=== PATIENT | female | born 1930 | race Caucasian/White ===

== ENCOUNTER → 2016-10-04 | Outpatient (REF) | payer MEDICARE, OTHER, MEDICAID ==
[~2016-10-04] MED LIST: ALLP100T PO; AML2.5T PO; CYCL-265 PO; DGX.125T PO; FERR-74 PO; FURO-125 PO; LEVO75TA10 PO; LISI-596 PO; METO-272 PO; OXB5TCR PO; POLY17PO2 PO; POTA10TA10 PO; SMV20T PO; VITA1CAP PO; WARF1TAB PO; WARF5TAB PO; WRF1T PO
== END ==
LOC: LAB 11:30
PROVIDERS: ATTEND Family Medicine
DX: Z51.81 Encounter for therapeutic drug level monitoring (principal); Z79.01 Long term (current) use of anticoagulants
CPT/HCPCS: 85610

== ENCOUNTER → 2016-11-01 | Outpatient (REF) | payer MEDICARE, OTHER, MEDICAID | LOC: LAB 13:52 | PROVIDERS: ATTEND Family Medicine | DX: Z51.81 Encounter for therapeutic drug level monitoring (principal); Z79.01 Long term (current) use of anticoagulants | CPT/HCPCS: 85610 ==

== ENCOUNTER → 2016-11-08 | Outpatient (REF) | payer MEDICARE, OTHER, MEDICAID | LOC: LAB 10:28 | PROVIDERS: ATTEND Family Medicine | DX: Z51.81 Encounter for therapeutic drug level monitoring (principal); Z79.01 Long term (current) use of anticoagulants | CPT/HCPCS: 85610 ==

== ENCOUNTER → 2016-11-22 | Outpatient (REF) | payer MEDICARE, OTHER, MEDICAID | LOC: LAB 09:06 | PROVIDERS: ATTEND Family Medicine | DX: Z51.81 Encounter for therapeutic drug level monitoring (principal); Z79.01 Long term (current) use of anticoagulants | CPT/HCPCS: 85610 ==

== ENCOUNTER → 2016-12-13 | Outpatient (REF) | payer MEDICARE, OTHER, MEDICAID | LOC: LAB 11:03 | PROVIDERS: ATTEND Family Medicine | DX: Z51.81 Encounter for therapeutic drug level monitoring (principal); Z79.01 Long term (current) use of anticoagulants | CPT/HCPCS: 85610 ==

== ENCOUNTER → 2017-01-03 | Outpatient (REF) | payer MEDICARE, OTHER, MEDICAID | LOC: LAB 09:03 | PROVIDERS: ATTEND Family Medicine | DX: Z51.81 Encounter for therapeutic drug level monitoring (principal); Z79.01 Long term (current) use of anticoagulants | CPT/HCPCS: 85610 ==

== ENCOUNTER → 2017-01-10 | Outpatient (REF) | payer MEDICARE, OTHER, MEDICAID | LOC: LAB 08:43 | PROVIDERS: ATTEND Family Medicine | DX: Z51.81 Encounter for therapeutic drug level monitoring (principal); Z79.01 Long term (current) use of anticoagulants | CPT/HCPCS: 85610 ==

== ENCOUNTER → 2017-01-24 | Outpatient (REF) | payer MEDICARE, OTHER, MEDICAID | LOC: LAB 08:31 | PROVIDERS: ATTEND Family Medicine | DX: Z51.81 Encounter for therapeutic drug level monitoring (principal); Z79.01 Long term (current) use of anticoagulants | CPT/HCPCS: 85610 ==

== ENCOUNTER 2017-02-06 09:43 | Emergency (ER) | payer MEDICARE, OTHER, MEDICAID ==
[~2017-02-06] VITALS: Ht 175.3 cm; Wt 93.1 kg
[~2017-02-06 09:43] MED LIST changes: -TRM50T PO
--- OUTSIDE RECORDS SUMMARY | 2017-02-06 09:47 | XMS REPORT | Continuity of Care Document ---
Author Author [facility] Address Unknown Phone Unavailable Care Team Providers Care Circus Train Supervisor Name Role Phone DEIDRE LOO MD PCP [phone] Insurance Providers Payer Name Policy Number Subscriber Name Relationship Medicare A And B [id number] Mehreen Tripathi 18 Self / Same As Patient Other1 [id number] Mehreen Tripathi 18 Self / Same As Patient [facility] [id number] Mehreen Tripathi 18 Self / Same As Patient Advance Directives Directive Response Recorded Date/Time Advanced Directives No 09/27/15 4:48pm Problems Active Problems Medical Problem Onset Date Status Acute pain 09/29/2012 Acute Fall at home ~06/14/2014 Acute Hematoma 10/06/2012 Acute Hyponatremia 10/06/2012 Acute Malaise and fatigue Unknown Acute Muscle weakness 10/06/2012 Acute Medications Current Home Medications Medication Dose Units Route Directions Days/Qty Instructions Start Date Oxybutynin Chloride 5 Mg 5 Mg ORAL Daily 09/29/12 Lisinopril 20 Mg 20 Mg ORAL Daily 09/29/12 Amlodipine Besylate (Norvasc) 2.5 Mg 2.5 Mg ORAL Daily 09/29/12 Levothyroxine Sodium 75 Mcg 75 Mcg ORAL Daily 09/29/12 Metoprolol Succinate 50 Mg 50 Mg ORAL Daily 09/29/12 Simvastatin (Zocor) 20 Mg 20 Mg ORAL Bedtime 09/29/12 Digoxin 0.125 Mg 0.125 Mg ORAL Daily 09/29/12 Potassium Chloride 10 Meq 10 Meq ORAL Daily 09/29/12 Allopurinol 100 Mg 100 Mg ORAL Daily 09/29/12 Furosemide 20 Mg 20 Mg ORAL Daily 10/13/12 Ferrous Sulfate 325 Mg 325 Mg ORAL Daily 10/13/12 Vitamin B Complex 1 Each 1 Each ORAL Daily 09/27/15 Warfarin Sodium 1 Mg 1 Mg ORAL Q48hrs 09/27/15 Warfarin Sodium 1 Mg 0.5 Mg ORAL Q48hrs 09/27/15 Past Home Medications Medication Directions Ordered Status Warfarin (Coumadin) 1 Mg Tablet, 1 Mg Oral Daily@1700 09/29/12 Discontinued Cyclobenzaprine Hcl 10 Mg Tablet, 1 Tab Oral Tid Prn 09/30/12 Discontinued Polyethylene Glycol 3350 17 Gm Powd.pack, 17 Gm Oral Every 48 Hours 10/13/12 Discontinued Warfarin Sodium 5 Mg Tablet, 5 Mg Oral Daily@1700 10/13/12 Discontinued Social History No social history. Hospital Discharge Instructions Current inpatient/outpatient. Discharge instructions are currently unavailable. Plan of Care Prescriptions Functional Status No functional status results. Allergies, Adverse Reactions, Alerts Allergen Type Severity Reaction Status Last Updated No Known Allergies Allergy Active 10/06/12 Immunizations Name Given Type Status Date Pneumonia Vaccine Received if Current 10/09/12 Historical Historical Date Influenza Vaccine Received if Current 10/09/12 Historical Historical Vital Signs No known vital signs results. Results Laboratory Results Test Name Result Units Flags Reference Collection Date/Time Result Date/ Time Comments 25-Hydroxy Vitamin D Total 27.8 ng/mL L 30.0-100.0 01/12/2016 10:55am 2:39pm Pending Laboratory Results Test Name Collection Date/Time Procedures Procedure Status Date Provider(s) CALCULUS ASSAY QUANT Completed 03/29/16 PROTHROMBIN TIME Completed 04/05/16 Encounters Encounter Location Arrival/Admit Date Discharge/Depart Date Attending Provider Registered Referred [facility] 04/05/16 10:37am DEIDRE LOO MD Registered Referred [facility] 03/29/16 8:43am DEIDRE LOO MD Discharged Recurring [facility] 01/12/16 11:49am 04/11/16 11:59pm DEIDRE LOO MD
[2017-02-06] MEDS ORDERED: TRM50T PO (10:46)
--- NOTE | 2017-02-06 11:09 | Diagnostic Imaging Report ---
INDICATION: Left knee pain. FINDINGS: Four views of the left knee show no fracture, dislocation, or pathologic effusion. There is minimal narrowing of the medial tibiofemoral joint space. IMPRESSION: Unremarkable left knee. No acute abnormality is seen. Dictated by: Dictated on workstation # [id number]
[2017-02-06 15:02] VITALS: BP 179/66
== END 2017-02-06 11:02 | disposition home or self-care (01) ==
LOC: ED 09:49
DX: S83.92XA Sprain of unspecified site of left knee, initial encounter (principal); W18.39XA Other fall on same level, initial encounter; Y93.89 Activity, other specified; Y92.002 Bathroom of unspecified non-institutional (private) residence as the place of occurrence of the external cause
CPT/HCPCS: 73564; 99282; 99283

== ENCOUNTER → 2017-02-06 | Outpatient (CLI) | payer MEDICARE, OTHER, MEDICAID ==
[~2017-02-06] MED LIST changes: +TRM50T PO
== END ==
LOC: EMS 09:35
PROVIDERS: ATTEND Family Medicine
DX: M25.562 Pain in left knee (principal); W01.0XXA Fall on same level from slipping, tripping and stumbling without subsequent striking against object, initial encounter; Y92.008 Other place in unspecified non-institutional (private) residence as the place of occurrence of the external cause

== ENCOUNTER → 2017-02-14 | Outpatient (REF) | payer MEDICARE, OTHER, MEDICAID ==
[~2017-02-14] MED LIST changes: +ATOR10TA56 PO; +CHOL10002 PO; +DILT120C PO; +FURO40TA4 PO; +LEVO150T6 PO; +MTP50T PO; +NF-LISIN40 PO; +OXB5T PO; +TRM50T PO; +WRF3T PO
== END ==
LOC: LAB 08:31
PROVIDERS: ATTEND Family Medicine
DX: Z51.81 Encounter for therapeutic drug level monitoring (principal); Z79.01 Long term (current) use of anticoagulants
CPT/HCPCS: 85610

== ENCOUNTER 2017-02-18 17:24 | Inpatient (IN) | payer MEDICARE, OTHER, MEDICAID ==
[~2017-02-18] VITALS: Ht 175.3 cm; Wt 77.9 kg
[~2017-02-18 17:24] MED LIST changes: -ATOR10TA56 PO; -CHOL10002 PO; -DILT120C PO; -FURO40TA4 PO; -LEVO150T6 PO; -MTP50T PO; -NF-LISIN40 PO; -OXB5T PO; -WRF3T PO
[2017-02-18 18:34] LABS: BASOPHILS % (AUTO) 0 % (0-2); EOSINOPHILS % (AUTO) 0 % (0-4); LYMPHOCYTES # (AUTO) 0.8 X10^3; MEAN CORPUSCULAR HEMOGLOBIN 30.5 PG (26.0-34.0); MEAN CORPUSCULAR HGB CONC 34.4 g/dL (31.0-37.0); MEAN CORPUSCULAR VOLUME 89 FL (80-100); MEAN PLATELET VOLUME 8.6 FL (6.0-9.5); MONOCYTES % (AUTO) 8 % (3-11); NEUTROPHILS # (AUTO) 10.8 X10^3; NEUTROPHILS % (AUTO) 85 % (51-67); PLATELET COUNT 390 10^3uL (150-450); WHITE BLOOD COUNT 12.72 10^3uL (4.0-11.0)
--- NOTE | 2017-02-18 18:35 | NUR ---
pt states she has to go to the bathroom, when placed on bedpan unable to go
--- NOTE | 2017-02-18 18:39 | Diagnostic Imaging Report ---
INDICATION: Weakness. COMPARISON: 10/06/2012. FINDINGS: Single view of the chest demonstrates stable cardiac enlargement without pulmonary edema. There is some infiltrate in the right middle lobe. Left lung is clear. No pneumothorax or effusion seen. IMPRESSION: Probable right middle lobe infiltrate. Follow-up recommended. Dictated by: Dictated on workstation # [id number]
[2017-02-18 18:45] LABS: ALBUMIN 4.2 g/dL (3.4-5.0); ANION GAP 16.1 MEQ/L (3-15); CALCULATED IONIZED CALCIUM 3.8 mg/dL (3.8-4.6); TOTAL PROTEIN 8.1 g/dL (6.4-8.5)
[2017-02-18 18:51] LABS: BILIRUBIN,URINE Negative (Negative); COLOR,URINE Yellow; GLUCOSE, URINE (UA) Negative (Negative); LEUKOCYTE ESTERASE ,URINE 1+ (Negative); PH,URINE 5.5 (5.0 - 8.0); UROBILINOGEN,URINE 0.2 mg/dL (0.2-1.0)
[2017-02-18 19:06] LABS: CLARITY,URINE Slightly Cloudy
[2017-02-18] MEDS ORDERED: cefTRIAXone SODIUM 1,000 MG in SODIUM CHLORIDE 50 ML IV ONE (19:45)
[2017-02-18] MEDS ORDERED: AZITHROMYCIN VIAL 500 MG in SODIUM CHLORIDE 250 ML IV ONE (19:45)
[2017-02-18 20:13] LABS: RBC,URINE 0-2 /HPF; URINE CENTRIFUGED VOLUME 12 mL
[2017-02-18] MEDS ORDERED: ONDANSETRON 2 MG/ML (Z0FRAN) 2 ML VIAL IV PRN (20:15)
[2017-02-18 20:50] VITALS: BP 156/66
--- NOTE | 2017-02-18 20:51 | NUR ---
Admitted to room. Sons present.
[2017-02-18 20:52] VITALS: BP 156/66
--- NOTE | 2017-02-18 20:58 | History and Physical (E) ---
History & Physical PCP: Kaya Siddiqi MD CC Fever, cough HPI 86 year old female presents to the [facility] ED with cough, reported fevers. This had been going on for 2 weeks at home. Brought in by her family tonight.They have left for the evening. She has HH come to the house once a week on . She also reports some diarrhea for the last 2-3 days. By report, one of her sons has had pneumonia recently. She also has some abrasions on her left thigh due to sitting on the toilet. Imaging has revealed possible right sided infiltrate in the ER. She was not hypoxemic. ER physician was concerned for her ability to self care at home, so she has been placed in the hospital tonight under obs status for further treatment. PMH 1. A fib on coumadin 2. DM2 3. Hypothyroid 4. OA 5. Gout PSH 1. Thyroidectomy 2. Cholecystectomy 3. C-sections ALLERGIES: Please see list at end of report. HOME MEDICATIONS: Please see list at end of report. FH Non contributory SH Lives at home with family. No reported alcohol or tobacco usage. ROS All are negative in a 10 point review except as mentioned above. OBJECTIVE 102.9 72 18 173/79 98% RA GEN: Awake, alert, oriented, NAD HEENT: EOMI, PERRL, moist oral mucosa. CV: RRR S1 S2 normal with slight murmur LUNGS: Diminished at the bases ABD: Soft, NT/ND with normal bowel sounds. EXTR: No C/C/E. Normal peripheral pulses. INTEG: No rash. NEURO: No focal motor neuro deficit. Weight: 90.9 kg LABS IMAGING Right sided infiltrate ASSESSMENT 1. Community acquired pneumonia 2. DM2 3. Hypothyroidism 4. HLD 5. OA 6. Gout 7. A fib on coumadin with slightly supratherapeutic INR PLAN Patient will be placed under obs status this evening. There was question by the ER doctor of her ability to manage her issues at home, and family seemed unreliable as well. Will place on standard rocephin and azithromycin for CAP coverage. Her INR is supratherapeutic. Will hold tonight's dose, recheck in AM. The remainder of her home meds will be reviewed and continued as appropriate. Allergies/Home Medications Allergies: Coded Allergies: No Known Allergies (Verified Allergy, Unknown, 02/18/17) Reported Home Medications Scheduled Allopurinol (Zyloprim) 100 MG PO DAILY (Reported) Amlodipine Besylate (Amlodipine Besylate) 2.5 MG PO DAILY (Reported) Digoxin (Lanoxin) 0.125 MG PO DAILY (Reported) Ferrous Sulfate (Ferrous Sulfate) 325 MG PO DAILY (Reported) Furosemide (Lasix) 20 MG PO DAILY (Reported) Levothyroxine Sodium (Levothroid) 75 MCG PO DAILY (Reported) Lisinopril (Zestril) 20 MG PO DAILY (Reported) Metoprolol Succinate (Metoprolol Succinate) 50 MG PO DAILY (Reported) Oxybutynin Chloride (Ditropan XL) 5 MG PO DAILY (Reported) Potassium Chloride (Potassium Chloride) 10 MEQ PO DAILY (Reported) Simvastatin (Simvastatin) 20 MG PO HS (Reported) Vitamin B Complex (Vitamin B Complex) 1 EACH PO DAILY (Reported) Warfarin Sodium (Coumadin) 1 MG PO Q48hrs (Reported) Warfarin Sodium (Coumadin) 0.5 MG PO Q48hrs (Reported) Scheduled PRN Tramadol HCl (Tramadol HCl) 1-2 TAB PO Q6H PRN PRN PAIN Copies to: Additional Provider: RHIANNON ALEJANDRA MD End of Report . JOSÉ LUIS BALDERAS MD February 18, 2017 20:58
--- NOTE | 2017-02-18 21:30 | NUR ---
Patient was able to visit with Dr Siddiqi via tele doc. Patient is [place], yet was able to understand Dr. Patient oriented to room and hospital procedures. Buttocks area, sage area. bilateral hip areas all very reddened, excoriated looking, weeping in areas. Good skin care given, yet skin is sore. Barrier creme applied to areas. Rectal area reddened also. Patient had small bm. Abdominal apron area cleansed. Still has dry skin in abdominal fold. Patient pleasant. IV patent at 75 cc an hour. Patient was incontinent and did use bedpan and voided a small amount of urine. Has boil-like looking areas on sage area. Repositioned in bed. Side rails up x2. Bed alarm placed on for safety.
[2017-02-18 23:49] VITALS: BP 107/28
--- NOTE | 2017-02-19 | NUR ---
Awakened for vitals. Repositioned in bed. No discomforts voiced. Takes fluids well. Did eat part of a sandwhich sugar free pudding. Remains alert and oriented to person place and time.
[2017-02-19] MEDS: ACETAMINOPHEN 325 MG TAB (TYLENOL) PO PRN ×2 (03:59→21:20)
[2017-02-19 06:31] LABS: BASOPHILS % (AUTO) 0 % (0-2); EOSINOPHILS % (AUTO) 0 % (0-4); LYMPHOCYTES # (AUTO) 1.1 X10^3; MEAN CORPUSCULAR HEMOGLOBIN 29.8 PG (26.0-34.0); MEAN CORPUSCULAR HGB CONC 33.1 g/dL (31.0-37.0); MEAN CORPUSCULAR VOLUME 90 FL (80-100); MEAN PLATELET VOLUME 9.1 FL (6.0-9.5); MONOCYTES # (AUTO) 1.4 X10^3; MONOCYTES % (AUTO) 14 % (3-11); NEUTROPHILS # (AUTO) 7.6 X10^3; NEUTROPHILS % (AUTO) 75 % (51-67); PLATELET COUNT 323 10^3uL (150-450); WHITE BLOOD COUNT 10.14 10^3uL (4.0-11.0)
--- NOTE | 2017-02-19 06:37 | NUR ---
Turned and repositioned every two hours tonight. Incontinent x2. Used bedpan x1. Good sage care and skin care done during the night due to severe inflammation of buttocks, sage area, inner thigh areas coccyx area. Patient stated that she needed to come into the hospital to be taken care of. States her bottom feels better already. Pleasant and cooperative with cares. Does not try to get OOB, but is forgetful at times. Bed alarm remains on. Afebrile this morning. Temp 98.7. No discomforts at this time.IV patent at 75 cc an hour. Call light within reach.
[2017-02-19 06:39] LABS: ANION GAP 13.7 MEQ/L (3-15)
[2017-02-19] MEDS ORDERED: LEVOTHYROXINE 75 MCG (LEVOTHROID) TABLET PO SCH (07:00)
[2017-02-19 07:26] VITALS: BP 126/57
[2017-02-19] MEDS ORDERED: NS FLUSH 10 ML PRN IV (07:55)
[2017-02-19] MEDS ORDERED: NS FLUSH 3 ML PRN IV (07:55)
--- NOTE | 2017-02-19 08:03 | Diagnostic Imaging Report ---
Portable AP chest at 5:10 AM. INDICATION: Pneumonia. The heart size is within normal limits and stable when compared to 02/18/2017. The previous exam noted that the right heart border was indistinct and suggested that there was pneumonia/atelectasis involving the right middle lobe. On this exam the right heart border is better defined. There is only minimal if any residual pneumonia/atelectasis still present. The lungs are otherwise generally clear. There is no sign of failure, and is no pleural effusion identified. The mediastinum is not widened. The osseous structures are intact. IMPRESSION: The appearance of the chest has improved since the prior exam as the right middle lobe does seem better aerated. There is only minimal if any residual pneumonia/atelectasis still present in this area. Clinical followup is recommended. Dictated by: Dictated on workstation # [id number]
[2017-02-19] MEDS: DIGOXIN 0.125 MG (LANOXIN) TAB PO SCH (08:14)
[2017-02-19] MEDS: MULTIVITAMIN W/MINERALS (THERAGRAN M) TABLET PO SCH (08:14)
[2017-02-19] MEDS: NS FLUSH 3 ML DAILY IV SCH (08:15)
[2017-02-19] MEDS ORDERED: LEVO150T6 PO (08:27)
[2017-02-19] MEDS ORDERED: MTP50T PO (08:27)
[2017-02-19] MEDS ORDERED: ATOR10TA56 PO (08:27)
[2017-02-19] MEDS ORDERED: OXB5T PO (08:27)
[2017-02-19] MEDS ORDERED: NF-LISIN40 PO (08:27)
[2017-02-19] MEDS ORDERED: CHOL10002 PO (08:27)
[2017-02-19] MEDS ORDERED: FURO40TA4 PO (08:27)
--- NOTE | 2017-02-19 08:42 | NUR ---
NUTRITION ASSESSMENT Level 1 Patient: Devika Dueñas Age/Sex: 86/F Date Screened: 02-19-17 Weight: 171.3#/77.9 kg Height: 69 inches Primary Diagnosis: pneumonia Diet Order: regular Relevant labs: sodium 134, glucose 152 Food allergies: N Nutrition Assessment Criteria Age over 80: 4 points Body Mass Index (BMI) under 19: N Admission Screening Indicates Risk? 3 points Moderate/High Risk Diagnosis: 3 points TPN or PPN: N NPO or clear liquid diet: N Serum Glucose <70 or >180: N Hgb A1c >6.7: N/A Total: 10 points Risk Screen: __ Patient at low nutritional risk based on available data; reevaluate in 5-7 days __ Patient at moderate nutritional risk based on available data; reevaluate in 3-5 days _X_ Patient at high nutritional risk; complete Nutrition Assessment within 48 hours of admission.
[2017-02-19] MEDS ORDERED: ENOXAPARIN 40 MG/0.4 ML (LOVENOX) SYR SC SCH (09:00)
[2017-02-19] MEDS ORDERED: NON-FORMULARY MEDICATION 1 EA EA (Vitamin B Complex 1 EACH) PO SCH (09:00)
[2017-02-19] MEDS ORDERED: amLODIPine 5 MG (NORVASC) TAB PO SCH (09:00)
[2017-02-19] MEDS ORDERED: cefTRIAXone SODIUM 1,000 MG in SODIUM CHLORIDE 50 ML IV SCH (09:00)
[2017-02-19] MEDS ORDERED: meTOproloL SUCCINATE 50 MG (TOPROL XL) TAB PO SCH (09:00)
[2017-02-19] MEDS: OXYBUTYNIN 5 MG PO SCH (09:18)
--- NOTE | 2017-02-19 09:36 | NUR ---
Pt up in recliner with BLE elevated on pillow, heel protectors in place- rests off and on. Alert/oriented, [place]. She has multiple scattered red, open, excoriated areas to buttock, sage area, left hip, right back lower leg, crack in Rt heel- will have Dr. Crow and Zaira Almodovar RN/Nurse Teacher Physically Impaired examine with this nurse. Barrier cream applied to all areas- she states she is incontinent of bowel and bladder, but uses bedpan at home. She does not ambulate at home, her two adult sons help change her after incontinence. States she stays in bed or in a recliner most of her day. She reports that Home Health comes to home to help set up medications but no other assistance provided- No CAREER TECHNICAL SUPERVISOR's to help her shower. She says "My boys help the best they can! But I am so glad I came here, I think I sure needed Hospital care!" Pt is pleasant and cooperative, thankful for all care. IVF infusing as ordered to [facility]- Rocephin infused this AM, Azithromycin infusing now- pt tolerates without c/o. Fed herself 75% Breakfast. Drinking cup of coffee now. Will continue to monitor patient.
[2017-02-19] MEDS ORDERED: AZITHROMYCIN VIAL 500 MG in SODIUM CHLORIDE 250 ML IV SCH (10:00)
[2017-02-19] MEDS ORDERED: DEXTROSE 50% 25 GM/50 ML SYRINGE IV PRN (10:40)
[2017-02-19] MEDS ORDERED: GLUCAGON EMERGENCY 1 MG/KIT IM PRN (10:40)
[2017-02-19] MEDS ORDERED: DEXTROSE ORAL GEL (GLUTOSE 40%) 15 GM TUBE PO PRN (10:40)
--- NOTE | 2017-02-19 10:58 | Progress Note (E) ---
Progress Note SUBJECTIVE Admitted before midnight. Fevers and cough at home x 2 weeks. Diarrhea x 2-3 days. Abrasions on left thigh attributed to injury from toilet. Febrile on admit. Diagnosed with community acquired pneumonia and given ceftriaxone, azithromycin. Since admit, has had resolving fever. Remains on room air. Mildly tachy. RN notes skin tears to buttocks present on admit. Has been pleasant and interactive, voicing appreciation for her care. OBJECTIVE Vital Signs Date Time Temp Pulse Resp B/P Pulse Ox O2 Delivery O2 Flow Rate FiO2 02/19/17 07:26 98.5 108 18 126/57 96 Room air I & O 02/18/17 02/19/17 Cumulative From/Thru 19:00 07:00 02/18/17 17:50 - 02/19/17 06:26 Intake Total 340 ml 340 ml Output Total 150 ml 150 ml Balance 190 ml 190 ml GEN: Awake, alert, interactive, oriented. NAD at present. HEENT: EOMI, clear sclerae, numerous SK on face. Moist oral mucosa. CV: Regular without murmur. PULM: CTA B with mildly diminished bases but no R/R/W. ABD: Soft, NT/ND with normal bowel sounds. EXTR: Edema in ankles has improved. INTEG: Numerous SK on face, back. Skin tears to buttocks. NEURO: No apparent focal motor neuro deficit. Lab-Past 14 Days, 35 Results 02/18/17 18:00: Urine Bacteria 1+, Urine Bilirubin Negative, Urine Blood 1+H, Urine Clarity Slightly cloudy, Urine Collection Type Clean catch, Urine Color Yellow, Urine Glucose (UA) Negative, Urine Ketones Negative, Urine Leukocyte Esterase 1+H, Urine Microscopic RBC 0-2, Urine Nitrite Negative, Urine Protein TraceH, Urine Specific [place] <=1.005, Urine Squamous Epithelial Cells 0-2, Urine Urobilinogen 0.2, Urine WBC 5-10H, Urine pH 5.5, Volume Urine Centrifuged 12 ml 02/18/17 18:28: Alanine Aminotransferase (ALT/SGPT) 34, Albumin 4.2, Albumin/Globulin Ratio 1.076L, Alkaline Phosphatase 87, Anion Gap 16.1H, Aspartate Amino Transf (AST/ SGOT) 29, BUN/Creatinine Ratio 43H, Basophils # (Auto) 0.1, Basophils (%) (Auto ) 0, Blood Urea Nitrogen 49H, C-Reactive Protein 7.30H, Calcium Level 9.3, Calcium/Ionized Calcium Ratio 3.8, Calculated Osmolality 271L, Carbon Dioxide Level 21L, Chloride Level 99, Creatinine 1.13, Digoxin Level 1.00, Eosinophils # (Auto) 0.0, Eosinophils (%) (Auto) 0, Estimat Glomerular Filtration Rate 55.5 , Estimated GFR (Non- 45.9, Glucose Level 173H, Hematocrit 32.60L, Hemoglobin 11.2L, Lymphocytes # (Auto) 0.8, Lymphocytes (%) (Auto) 6L, Mean Corpuscular Hemoglobin 30.5, Mean Corpuscular Hemoglobin Concent 34.4, Mean Corpuscular Volume 89, Mean Platelet Volume 8.6, Monocytes # (Auto) 1.0, Monocytes (%) (Auto) 8, QL-Fer-F-Type Natriuretic Peptide 3060H, Neutrophils # ( Auto) 10.8, Neutrophils (%) (Auto) 85H, Platelet Count 390, Potassium Level 4.6 , Prothromb Time International Ratio 4.0H, Prothrombin Time 44.6H, Red Blood Count 3.67L, Red Cell Distribution Width 13.4, Smear Scan , Sodium Level 131L, Total Bilirubin 0.7, Total Protein 8.1, White Blood Count 12.72H 02/18/17 18:50: Lactic Acid Level 1.4 02/19/17 05:40: Anion Gap 13.7, BUN/Creatinine Ratio 36H, Basophils # (Auto) 0.0, Basophils (%) (Auto) 0, Blood Urea Nitrogen 37H, Calcium Level 8.7L, Carbon Dioxide Level 20L , Chloride Level 104, Creatinine 1.02, Eosinophils # (Auto) 0.0, Eosinophils (% ) (Auto) 0, Estimat Glomerular Filtration Rate 62.5, Estimated GFR (Non- 51.6, Glucose Level 152H, Hematocrit 28.40L, Hemoglobin 9.4L, Lymphocytes # (Auto) 1.1, Lymphocytes (%) (Auto) 11L, Mean Corpuscular Hemoglobin 29.8, Mean Corpuscular Hemoglobin Concent 33.1, Mean Corpuscular Volume 90, Mean Platelet Volume 9.1, Monocytes # (Auto) 1.4, Monocytes (%) (Auto ) 14H, Neutrophils # (Auto) 7.6, Neutrophils (%) (Auto) 75H, Platelet Count 323 , Potassium Level 3.9, Prothromb Time International Ratio 3.3H, Prothrombin Time 36.1H, Red Blood Count 3.15L, Red Cell Distribution Width 13.2, Sodium Level 134L, White Blood Count 10.14 MICRO 02/18 Urine culture PENDING 02/18 Blood culture PENDING 02/18 Sputum culture PENDING SAMPLE IMAGING 02/19/17 Chest Xray Portable 1 View A/P Portable AP chest at 5:10 AM. INDICATION : Pneumonia. The heart size is within normal limits and stable when compared to 02/18/2017. The previous exam noted that the right heart border was indistinct and suggested that there was pneumonia/atelectasis involving the right middle lobe. On this exam the right heart border is better defined. There is only minimal if any residual pneumonia/atelectasis still present. The lungs are otherwise generally clear. There is no sign of failure, and is no pleural effusion identified. The mediastinum is not widened. The osseous structures are intact. IMPRESSION: The appearance of the chest has improved since the prior exam as the right middle lobe does seem better aerated. There is only minimal if any residual pneumonia/atelectasis still present in this area. Clinical followup is recommended. 02/18/17 CHEST 1 VIEW, AP/PA ONLY* INDICATION: Weakness. COMPARISON: 2012. FINDINGS: Single view of the chest demonstrates stable cardiac enlargement without pulmonary edema. There is some infiltrate in the right middle lobe. Left lung is clear. No pneumothorax or effusion seen. IMPRESSION: Probable right middle lobe infiltrate. Follow-up recommended. ASSESSMENT Devika Dueñas is a 86 year old female admitted from ED 02/18 for SIRS/sepsis attributed to community acquired pneumonia. She had diarrhea on admit as well. She has numerous chronic problems and there is concern about buttocks skin tears and poor ability for her to care for herself at home. PLAN * SIRS/Sepsis: Resolving. * Community Acquired Pneumonia: Blood culture pending. Sputum pending sample. Acapella. Oxygen protocol. Guaifenesin. Empiric ceftriaxone, azithromycin. * Diarrhea: Check stool PCR panel. * Skin Tears on buttocks: Pressure relieving strategies, mepilex. * Coagulopathy: Due to warfarin. INR 4.0 on admit, 3.3 02/19. Hold warfarin. Monitor trend. * Deconditioning: PT/OT eval and treat. * F/E/N: Peripheral IV. IVF bolus on admit. Diabetic diet. I&O, daily weight. * Prophylaxis: Warfarin (on hold due to elevated INR.) * Code Status: Full * Dispo: Inpatient, expecting 3 day stay and may then benefit from skilled care. CHRONIC ISSUES * Diabetes Mellitus Type II: Sliding scale. * Hypothyroidism: Levothyroxine * HTN: Metoprolol, lisinopril * Atrial fibrillation: Digoxin, warfarin. * Bladder Spasms: Oxybutynin * Pain: Tramadol. * HLD: Atorvastatin * Gout: Allopurinol RHIANNON ALEJANDRA MD February 19, 2017 10:49
[2017-02-19] MEDS: INSULIN LISPRO 1 UNIT/0.01 ML (HUMALOG) DOSE SC SCH ×3 (11:30→21:00)
[2017-02-19] MEDS ORDERED: WRF3T PO (12:24)
[2017-02-19] MEDS ORDERED: DILT120C PO (12:24)
--- NOTE | 2017-02-19 12:31 | NUR ---
MED REC COMPLETED-current med list obtained from Ext Med History application, home health listing, PCP listing and retail pharmacy.
--- NOTE | 2017-02-19 12:48 | Physical Therapy Evaluation(E) ---
Plan of Care STG: Plan-Treatment Functional: Trans. Safe w/ AD STG Time Frame: 5 Days LTG Functional Outcomes No custodial goals to be set secondary to patient's anticipated short length of stay. Goals Discussed/Agreed: Yes Plan: Balance, Gait & Transfer Training, Neuro Re-Education, Progressive Ambulation, Strengthening, Transfer Training Discharge Recommendations: TCU/Skilled NH Aware of Dx and Prognosis: Yes Aware of Risk & Benefit: Yes To be Seen: Daily Saturday-Saturday Initial Evaluation Service Date/Time 02/19/17, 12:35 Primary Diagnosis: (1) Pneumonia ICD Code: J18.9 (2) Malaise and fatigue (3) Muscle weakness ICD Code: 728.87 Treatment Diagnosis: (1) Malaise and fatigue (2) Muscle weakness ICD Code: 728.87 (3) Pneumonia ICD Code: J18.9 Onset Date: 02/18/2017 Start of Care Date: February 19, 2017 Resuscitation Status: Full Code Precaution/Isolation: Standard Precautions Fall Level: High Risk 51 or greater Initial Assessment Reason for Rehab: Increase Mobility, Increase Strength, Increase Balance, Increase AROM, Increase Transfers, Increase Endurance Medical History: A-Fib, DM, Hypothyroidism, Other (gout, OA) Pain Location/Comment Patient denies pain. Prior Level of Function The patient is pleasant older female. She lives at home with her two sons who assist her with all ADLs. Patient is sedentary and required assistance from her sons to transfer to and from bed/chair. Patient has AWW and wheelchair at home. The patient reports it has been months since she has ambulated. Per nursing report it was getting more difficult for her children to take care of her. Rehabilitation Potential: Good (Patient is pleasant and would like to walk again. ) Assistive Device: FWW Distance Walked in Feet One step forward/backward, two side steps with moderate assistance using FWW Assist: Mod Assist (of 2 secondary to patient difficulty coordinating lower extremity. ) Gait Description: Unsteady Patient retropulsive, knee valgus, and difficulty with hip extension and knee extension simultaneously. ROM/Strength Hip Mobility: Right Hip Strength: 3+ Left Hip Strength: 3+ Knee Flexion Mobility: Right Knee Flexion Strength: 3+ Left Knee Flexion Strength: 3+ Knee Extension Mobility: Right Knee Extension Strength: 4 Left Knee Extension Strength: 4 Ankle Mobility: Right Ankle Strength: 3+ Left Ankle Strength: 1 Assessment/Goals Initial Transfer Assessment Rolling: Not Assessed/NA Sit-Supine: Not Assessed/NA Sitting Edge of Bed: Supervision or setup (sitting in chair ) Supine-Sit: Not Assessed/NA Sit-Stand from Bed: Moderate Assistance Stand-Sit: Moderate Assistance Ambulation: Moderate Assistance Distance Walked in Feet 1 step fwd/bwd, 2 side steps Comment Patient with absent light touch and deep pressure sensation in right foot and left LE from knee down. Transfer Short Term Goals Rolling: Minimal Assistance Sit-Supine: Minimal Assistance Sitting Edge of Bed: Modified [place] Supine-Sit: Minimal Assistance Sit-Stand from bed: Minimal Assistance Stand-Sit: Minimal Assistance Ambulation: Minimal Assistance (A minimum of 10 feet using FWW. ) Treatments Ambulation Gait Assist: Mod Assist (Standing two minutes working on maintaining upright posture, sequencing hip extension, knee extension and side stepping. Patient demonstrates no lateral weight shifting. ) Coding Time In: 1129 Time Out: 1157 Total Minutes: 28 Charges: 24128 Eval< 20 min, 55353 Ther Activity GERA ALVARADO PT February 19, 2017 12:48
--- NOTE | 2017-02-19 13:07 | NUR ---
NUTRITION ASSESSMENT Level II Patient: Devika Dueñas Age/Sex: 86/F Date Assessed: 02-19-17 ASSESSMENT Pertinent History: Patient admitted with pneumonia and screened at high nutritional risk secondary to elderly age and diagnosis along with skin tears to buttocks present on admission, though no documented pressure sores. PMHx includes diabetes, hypothyroidism, osteoarthritis, gout and a fib. She lives at home with her two sons and has home health once/week. There is concern about her ability to care for herself at home because she spends most of the day sitting or laying down. Pt. denied problems chewing or swallowing to me and said she receives Meals on Wheels Saturday through Saturday along with her son, who is retired. [facility] actually has no record of her here, so she must have meant [facility] which also delivers. Pt. stated her sons help provide meals otherwise. Weight hx. includes 189# 2014 and 204.8# 02-06-17 in the ED. Meds/Nutrition: vitamin D, Humalog, MVI, Synthroid Weight: 199.9#/90.8 kg Height: 69 inches Body Mass Index (BMI): 29.6 [place] Body Weight : 145#/65.9 kg % IBW: 137% GASTROINTESTINAL Appetite: good, eating 75% Diet Order: regular Unintentional loss of >10 lbs. in 3 months: unsure Difficult to chew/swallow: N Diabetes: Yes Relevant Labs: sodium 134, glucose 152 Calculations for Nutritional Assessment Estimated calorie needs: 22-25 kcals/kg = 1,980-2,250 kcals Estimated protein needs: 1.0-1.2 g/kg = 90-108 g./day DIAGNOSIS 1. Nutrition Diagnosis: Potential for inadequate intake related to illness and weakness as evidenced by concern for ability to care for herself at home with 4.9# weight loss in the past 2 weeks. NUTRITIONAL INTERVENTION Goal: Patient will receive adequate nutrition to meet her needs. Plan: Noted pt. was ordered a regular diet instead of diabetic; her blood sugars are running from 156-173, and she has orders for insulin on a sliding scale. Will monitor for need to change to diabetic diet. Will follow with physician re: plan of care and safety at home. She already receives meals through [facility]. MONITORING & EVALUATION _X_ Monitor patients menu selections _X_ Monitor patients food intake per nursing notes __ Monitor NPO/clear liquid days _X_ Monitor lab values __ Monitor I&O __ Other Comments: documented weight of 171.3# in [facility] is assumed to be inaccurate, as she was admitted weighing 199.9#/90.8 kg yesterday and this would mean a 28# weight loss in one day. I used 199.9# as her assessment weight.
--- NOTE | 2017-02-19 14:00 | PT Daily Note Inpatient (E) ---
PT Daily Treatment Service Date/Time 02/19/17, 13:59 Medical Diagnosis: (1) Pneumonia ICD Code: J18.9 (2) Malaise and fatigue (3) Muscle weakness ICD Code: 728.87 Physical Therapy: (1) Malaise and fatigue (2) Muscle weakness ICD Code: 728.87 (3) Pneumonia ICD Code: J18.9 Precaution/Isolation: Standard Precautions Resuscitation Status: Full Code Fall Level: High Risk 51 or greater Subjective Pt sitting up in recliner. States she is ready to go to bed for a nap. Agrees to therapy. Oxygen Delivery: Room air Treatments Sit, Stand, Supine: Supine Extremity: Both Lower Extremity Assistance: AAROM, AROM Repetition: 1 x 10 Exercise: AP, QS, Heel Slides, Hip Abduction, SLR, Bridge Transfers Rolling: Minimal Assistance (using bed rails) Sit-Supine: Minimal Assistance Sitting Edge of Bed: Supervision or setup Sit-Stand from bed: Maximal Assistance (with max assist and 100 % cues to lean fwd and stand tall) Stand-Sit: Moderate Assistance Pivot Transfers: Maximal Assistance (using FWW and 100 % cues for sequencing.) Gait Attempted standing pt while [employer] cleaned her up but unable due to pt fear of falling. Education/Plan Assessment Pt fatigues easily due to poor activity tolerance. Plan Patient will be seen: Daily Saturday-Saturday Coding Time In: 1:39 Time Out: 1:59 Total Minutes: 20 Charges: 95945 Exercise Therp 15 Grady Cook PTA February 19, 2017 14:00
[2017-02-19 16:07] VITALS: BP 115/49
[2017-02-19] MEDS ORDERED: warFARin 1 MG (COUMADIN) TAB PO SCH (17:00)
--- NOTE | 2017-02-19 17:55 | NUR ---
@ 1525- Pt calls for assist to commode- Renata XIONG summoned this nurse to room for assist. @1530- Pt was unable to move feet in pivot transfer from bed to commode using 2 assist, gaitbelt and walker- started to sit down on this nurse leg. This nurse and Renata XIONG were unable to get patient back to an upright standing position, so we lowered her to the floor using this nurse leg and guided by gait belt. Pt was uninjured- states she feels tired this afternoon from all the activity she is not used to at home. Sandy Samuel CNA came to room to help get pt off floor and to commode- Dr. Crow notified- no new orders. will cont to monitor patient. Shortly after getting patient off commode we laid her in bed to measure all skin lesions- see paper chart for tracings. Pt is now up in recliner- family had come in to visit at 1630 and was notified of "controlled fall". Questions answered and education for safety given.
--- NOTE | 2017-02-19 20:00 | NUR ---
Resting in bed. Visiting with sons. alert and oriented. Denies any discomforts at this time. Heel protectors on. Bed alarm on for safety. Turned and repositioned. Ade care and skin care to all reddened areas on buttocks, and coccyx areas. Areas starting to heal already. Starting to dry. No weeping or bleeding noted from areas. Call light within reach.
[2017-02-19] MEDS: ALLOPURINOL 100 MG (ZYLOPRIM) TAB PO SCH (21:19)
--- NOTE | 2017-02-19 21:39 | NUR ---
Tylenol 650mg administered for generalized discomfort. HS cares done. Bed alarm on for safety.
[2017-02-20 00:21] VITALS: BP 103/43
[2017-02-20 06:00] LABS: BASOPHILS % (AUTO) 0 % (0-2); EOSINOPHILS # (AUTO) 0.1 10^3uL; EOSINOPHILS % (AUTO) 1 % (0-4); LYMPHOCYTES # (AUTO) 1.7 X10^3; MEAN CORPUSCULAR HEMOGLOBIN 30.1 PG (26.0-34.0); MEAN CORPUSCULAR VOLUME 91 FL (80-100); MEAN PLATELET VOLUME 8.9 FL (6.0-9.5); MONOCYTES # (AUTO) 1.7 X10^3; MONOCYTES % (AUTO) 14 % (3-11); NEUTROPHILS # (AUTO) 8.5 X10^3; NEUTROPHILS % (AUTO) 70 % (51-67); PLATELET COUNT 323 10^3uL (150-450); WHITE BLOOD COUNT 12.12 10^3uL (4.0-11.0)
[2017-02-20] MEDS: INSULIN LISPRO 1 UNIT/0.01 ML (HUMALOG) DOSE SC SCH ×4 (06:07→21:06)
--- NOTE | 2017-02-20 06:22 | NUR ---
Repositioned frequently throughout the night. Desitin used on buttocks and open areas on hips and thigh areas. Inner buttocks area starting to open this morning and bleed a little. Thick layer of Desitin applied to inner buttocks. Pleasant and cooperative with cares. Call light within reach. Bed alarm on for safety.
[2017-02-20 06:23] LABS: ANION GAP 10.8 MEQ/L (3-15)
[2017-02-20] MEDS: LEVOTHYROXINE 150 MCG (LEVOTHROID) TABLET PO SCH (07:14)
[2017-02-20 08:00] VITALS: BP 137/69
[2017-02-20] MEDS: DIGOXIN 0.125 MG (LANOXIN) TAB PO SCH (08:26)
[2017-02-20] MEDS: meTOprolol TARTRATE 25 MG (LOPRESSOR) TABLET PO SCH (08:26)
[2017-02-20] MEDS: cefTRIAXone SODIUM 1,000 MG in SODIUM CHLORIDE 50 ML IV SCH (08:26)
[2017-02-20] MEDS: OXYBUTYNIN 5 MG PO SCH (08:26)
[2017-02-20] MEDS: ALLOPURINOL 100 MG (ZYLOPRIM) TAB PO SCH ×2 (08:26→20:23)
[2017-02-20] MEDS: CHOLECALCIFEROL 1000 INT UNITS (VITAMIN D3) TABLET PO SCH (08:26)
[2017-02-20] MEDS: lisINopril 40 MG (PRINIVIL) TABLET PO SCH (08:26)
[2017-02-20] MEDS: MULTIVITAMIN W/MINERALS (THERAGRAN M) TABLET PO SCH (08:26)
[2017-02-20] MEDS: NS FLUSH 3 ML DAILY IV SCH (08:26)
[2017-02-20] MEDS: ATORVASTATIN 10 MG (LIPITOR) TABLET PO SCH (08:26)
[2017-02-20] MEDS ORDERED: CHOLECALCIFEROL 1000 INT UNITS (VITAMIN D3) TABLET PO SCH (09:00)
--- NOTE | 2017-02-20 09:00 | NUR ---
Pt was changed and Desitin was applied to excoriation to buttocks. Pt tolerated without c/o.
--- NOTE | 2017-02-20 09:30 | NUR ---
Pt c/o Bilat feet hurting- gout. Tylenol 650mg PO given for this c/o. Grady PT in room to work with patient.
[2017-02-20] MEDS: ACETAMINOPHEN 325 MG TAB (TYLENOL) PO PRN ×2 (09:33→15:31)
[2017-02-20] MEDS: ZINC OXIDE OINTMENT (DESITIN) 56.7 GM TUBE TOP PRN ×3 (09:50→20:45)
[2017-02-20] MEDS ORDERED: AZITHROMYCIN VIAL 500 MG in SODIUM CHLORIDE 250 ML IV SCH (10:00)
--- NOTE | 2017-02-20 10:06 | Progress Note (E) ---
Progress Note SUBJECTIVE Overnight, no major issues reported. Vitals remain stable. Has had 3 BM since admit. RN giving good skin care to help with excoriations and shearing of buttocks that have been present on admit and attributed to prolonged sitting on bedpans and in chair at home. Denies new complaints. OBJECTIVE Vital Signs Date Time Temp Pulse Resp B/P Pulse Ox O2 Delivery O2 Flow Rate FiO2 02/20/17 08:00 97.8 96 18 137/69 98 Room air I & O 02/19/17 02/20/17 Cumulative From/Thru 19:00 07:00 02/18/17 17:50 - 02/20/17 05:25 Intake Total 1459 ml 1209 ml 3008 ml Output Total 150 ml Balance 1459 ml 1209 ml 2858 ml GEN: Awake, alert, interactive, oriented. NAD at present. HEENT: EOMI, clear sclerae, numerous SK on face. Moist oral mucosa. CV: Regular with prominent vibratory systolic murmur loudest at left sternal border, III/. (Correction from previous.) PULM: CTA B with mildly diminished bases but no R/R/W. ABD: Soft, NT/ND with normal bowel sounds. EXTR: Edema in ankles has improved. INTEG: Numerous SK on face, back. Skin tears/superficial desquamation related to pressure ulcers noted extensively over buttocks bilaterally, improving. ( Stage II pressure ulcers, present on admit.) Has another healing pressure ulcer in popliteal region of right knee. NEURO: No apparent focal motor neuro deficit. Lab-Past 14 Days, 35 Results 02/18/17 18:00: Urine Bacteria 1+, Urine Bilirubin Negative, Urine Blood 1+H, Urine Clarity Slightly cloudy, Urine Collection Type Clean catch, Urine Color Yellow, Urine Glucose (UA) Negative, Urine Ketones Negative, Urine Leukocyte Esterase 1+H, Urine Microscopic RBC 0-2, Urine Nitrite Negative, Urine Protein TraceH, Urine Specific [place] <=1.005, Urine Squamous Epithelial Cells 0-2, Urine Urobilinogen 0.2, Urine WBC 5-10H, Urine pH 5.5, Volume Urine Centrifuged 12 ml 02/18/17 18:28: Alanine Aminotransferase (ALT/SGPT) 34, Albumin 4.2, Albumin/Globulin Ratio 1.076L, Alkaline Phosphatase 87, Anion Gap 16.1H, Aspartate Amino Transf (AST/ SGOT) 29, BUN/Creatinine Ratio 43H, Basophils # (Auto) 0.1, Basophils (%) (Auto ) 0, Blood Urea Nitrogen 49H, C-Reactive Protein 7.30H, Calcium Level 9.3, Calcium/Ionized Calcium Ratio 3.8, Calculated Osmolality 271L, Carbon Dioxide Level 21L, Chloride Level 99, Creatinine 1.13, Digoxin Level 1.00, Eosinophils # (Auto) 0.0, Eosinophils (%) (Auto) 0, Estimat Glomerular Filtration Rate 55.5 , Estimated GFR (Non- 45.9, Glucose Level 173H, Hematocrit 32.60L, Hemoglobin 11.2L, Lymphocytes # (Auto) 0.8, Lymphocytes (%) (Auto) 6L, Mean Corpuscular Hemoglobin 30.5, Mean Corpuscular Hemoglobin Concent 34.4, Mean Corpuscular Volume 89, Mean Platelet Volume 8.6, Monocytes # (Auto) 1.0, Monocytes (%) (Auto) 8, XO-Qts-H-Type Natriuretic Peptide 3060H, Neutrophils # ( Auto) 10.8, Neutrophils (%) (Auto) 85H, Platelet Count 390, Potassium Level 4.6 , Prothromb Time International Ratio 4.0H, Prothrombin Time 44.6H, Red Blood Count 3.67L, Red Cell Distribution Width 13.4, Smear Scan , Sodium Level 131L, Total Bilirubin 0.7, Total Protein 8.1, White Blood Count 12.72H 02/18/17 18:50: Lactic Acid Level 1.4 02/19/17 05:40: Anion Gap 13.7, BUN/Creatinine Ratio 36H, Basophils # (Auto) 0.0, Basophils (%) (Auto) 0, Blood Urea Nitrogen 37H, Calcium Level 8.7L, Carbon Dioxide Level 20L , Chloride Level 104, Creatinine 1.02, Eosinophils # (Auto) 0.0, Eosinophils (% ) (Auto) 0, Estimat Glomerular Filtration Rate 62.5, Estimated GFR (Non- 51.6, Glucose Level 152H, Hematocrit 28.40L, Hemoglobin 9.4L, Lymphocytes # (Auto) 1.1, Lymphocytes (%) (Auto) 11L, Mean Corpuscular Hemoglobin 29.8, Mean Corpuscular Hemoglobin Concent 33.1, Mean Corpuscular Volume 90, Mean Platelet Volume 9.1, Monocytes # (Auto) 1.4, Monocytes (%) (Auto ) 14H, Neutrophils # (Auto) 7.6, Neutrophils (%) (Auto) 75H, Platelet Count 323 , Potassium Level 3.9, Prothromb Time International Ratio 3.3H, Prothrombin Time 36.1H, Red Blood Count 3.15L, Red Cell Distribution Width 13.2, Sodium Level 134L, White Blood Count 10.14 02/20/17 05:20: Albumin 3.0#L, Anion Gap 10.8, Basophils # (Auto) 0.0, Basophils (%) (Auto) 0, Blood Urea Nitrogen 34H, Calcium Level 8.6L, Carbon Dioxide Level 24, Chloride Level 103, Creatinine 1.05, Eosinophils # (Auto) 0.1, Eosinophils (%) (Auto) 1, Estimat Glomerular Filtration Rate 60.4, Estimated GFR (Non- 49.9, Glucose Level 112#H, Hematocrit 27.30L, Hemoglobin 9.0L, Lymphocytes # ( Auto) 1.7, Lymphocytes (%) (Auto) 14L, Mean Corpuscular Hemoglobin 30.1, Mean Corpuscular Hemoglobin Concent 33.0, Mean Corpuscular Volume 91, Mean Platelet Volume 8.9, Monocytes # (Auto) 1.7, Monocytes (%) (Auto) 14H, Neutrophils # ( Auto) 8.5, Neutrophils (%) (Auto) 70H, Phosphorus Level 3.8, Platelet Count 323 , Potassium Level 4.0, Prothromb Time International Ratio 2.5H, Prothrombin Time 27.6H, Red Blood Count 2.99L, Red Cell Distribution Width 13.4, Sodium Level 134L, White Blood Count 12.12H MICRO 02/18 Urine culture Gram negative bacillus 02/18 Blood culture Negative to date IMAGING 02/19/17 Chest Xray Portable 1 View A/P Portable AP chest at 5:10 AM. INDICATION : Pneumonia. The heart size is within normal limits and stable when compared to 02/18/2017. The previous exam noted that the right heart border was indistinct and suggested that there was pneumonia/atelectasis involving the right middle lobe. On this exam the right heart border is better defined. There is only minimal if any residual pneumonia/atelectasis still present. The lungs are otherwise generally clear. There is no sign of failure, and is no pleural effusion identified. The mediastinum is not widened. The osseous structures are intact. IMPRESSION: The appearance of the chest has improved since the prior exam as the right middle lobe does seem better aerated. There is only minimal if any residual pneumonia/atelectasis still present in this area. Clinical followup is recommended. 02/18/17 CHEST 1 VIEW, AP/PA ONLY* INDICATION: Weakness. COMPARISON: 2012. FINDINGS: Single view of the chest demonstrates stable cardiac enlargement without pulmonary edema. There is some infiltrate in the right middle lobe. Left lung is clear. No pneumothorax or effusion seen. IMPRESSION: Probable right middle lobe infiltrate. Follow-up recommended. ASSESSMENT Devika Dueñas is a 86 year old female admitted from ED 02/18 for SIRS/sepsis attributed to community acquired pneumonia. She had diarrhea on admit as well. She has numerous chronic problems and there is concern about buttocks skin tears and poor ability for her to care for herself at home. PLAN * SIRS/Sepsis: Resolving. * Community Acquired Pneumonia: Blood culture negative to date. No sputum for culture. Acapella. Oxygen protocol. Guaifenesin. Empiric ceftriaxone, azithromycin. * UTI: Due to gram negative bacilli. Urine culture pending. Covered with ceftriaxone. * Diarrhea: Seems to have improved. If recurrent, check stool PCR panel. * Pressure Ulcers, Stage II, Buttocks: Extensive, present on admit, improving with pressure relieving strategies, barrier cream. * Coagulopathy: Due to warfarin. INR 4.0 on admit, 3.3 02/19. Hold warfarin. Monitor trend. * Deconditioning: PT/OT eval and treat. * F/E/N: Peripheral IV. IVF bolus on admit. Diabetic diet. I&O, daily weight. * Prophylaxis: Warfarin (on hold due to elevated INR.) * Code Status: Full * Dispo: Inpatient, expecting 3 day stay and may then benefit from skilled care. Possible discharge 02/21 or 02/22. CHRONIC ISSUES * Diabetes Mellitus Type II: Sliding scale. * Hypothyroidism: Levothyroxine * HTN: Metoprolol, lisinopril * Atrial fibrillation: Digoxin, warfarin. * Bladder Spasms: Oxybutynin * Pain: Tramadol. * HLD: Atorvastatin * Gout: Allopurinol RHIANNON ALEJANDRA MD February 20, 2017 10:06
--- NOTE | 2017-02-20 11:44 | PT Daily Note Inpatient (E) ---
PT Daily Treatment Service Date/Time 02/20/17, 11:33 Medical Diagnosis: (1) Pneumonia ICD Code: J18.9 (2) Malaise and fatigue (3) Muscle weakness ICD Code: 728.87 Physical Therapy: (1) Malaise and fatigue (2) Muscle weakness ICD Code: 728.87 (3) Pneumonia ICD Code: J18.9 Precaution/Isolation: Standard Precautions Resuscitation Status: Full Code Fall Level: High Risk 51 or greater Subjective Pt states she has gout. Not exited to do therapy but agrees after encouragement. Oxygen Delivery: Room air O2 liters/minute: 0 Treatments Sit, Stand, Supine: Sitting, Long Sitting Extremity: Both Lower Extremity Assistance: AAROM, AROM Repetition: 1 x 20 Exercise: AP, QS, Heel Slides, Hip Abduction, SLR, LAQ, Hip Flexion Transfers Sit-Stand from bed: Moderate Assistance (to max assist x2 with 100% cues to scoot fwd, lean fwd and push off chair.) Stand-Sit: Moderate Assistance (100% cues to reach back for chair.) Gait Standing with FWW and standard walker for 30", 60", and 1' 15". Pt required verbal and tactile cues to shift wt fwd, stand tall, and breathe. Education/Plan Assessment Pt states her knees felt better after the exercises. Pt was able to stand up with less effort by the third attempt. Safety Awareness: Impaired Plan Patient will be seen: Daily Saturday-Saturday Coding Time In: 9:38 Time Out: 10:09 Total Minutes: 31 Charges: 81766 Exercise Therp 15 m ( 17 minutes), 60737 Ther Activity (14 minutes) Grady Bran PTA February 20, 2017 11:44
--- NOTE | 2017-02-20 12:22 | OT Therapy Evaluation (E) ---
POC Plan of Care Problems Identified: Activity Tolerance, ADLs, Balance, Lt UE Strength, Rt UE Strength, Safety Awareness Plan: Evaluation-OT, ADL/Self Care Management, Therapy Exercises, Therapy Activities, Pt/Family/Staff Education Frequency of OT: Five times weekly Duration of OT: Other (4 days ) Therapy to Include: ADL training, Balance with ADLs, Pt/family education, Therapeutic activities, UE strengthing Discharge Recommendations: TCU/Skilled NH Pt would benefit from skilled occupational therapy services to improve independence and safety with self care tasks for return to prior level of function. Recommended Equipment at DC: Toiler riser w/ rails, Extended bath bench Pt. Aware of Dx and Prognosis: Yes Pt. Aware of Risk & Benefit: Yes Goals: Discussed with patient, Discussed with family Short Term Goals STG Time Frame: 4 Days Will Perform Grooming: Independently Will Dress Upper Extremity: With Setup/SBA Will Dress Lower Extremity: With Min Assistance Will do Bathing: With Min Assistance Will do Toileting: With Min Assistance Will Perform Funct Transfer: With Min Assistance STG #1 Pt will participate in 15 min of ther-ex with 4 or less rest breaks. Inital Evaluation/General Service Date/Time 02/20/17, 12:13 Primary Diagnosis: (1) Pneumonia ICD Code: J18.9 (2) Malaise and fatigue (3) Muscle weakness ICD Code: 728.87 Treatment Diagnosis: (1) Weakness ICD Code: R53.1 Onset Date: 02/19/17 Start of Care Date: February 20, 2017 Precaution/Isolation: Standard Precautions Fall Level: High Risk 51 or greater Resuscitation Status: Full Code Pertinent Medical History: A-Fib, DM, Hypothyroidism, Other (gout, OA) Pain Level: 0 Oxygen Needed: Room air O2 liters/minute: 0 Rehabilitation Potential: Good Potential Based On Patient's motivation to get stronger. Rational for Skilled Treatment: Assistance with ADLs, Deconditioning, Maximize Safety, Prevent Falls Living Status Prior to Admit: With sons and home health Prior to onset, pt reports some assistance with self care tasks. Pt reports it has become harder and harder to do tasks by self. Pt lives with two sons. Pt reports her sons help with cooking and cleaning. Pt requires assistance to get into the bathtub. Has home health twice a week for medication and to check vitals. Pt's niece concerned with patient's son's ability to help take care of patient at home. Pt reports 2-3 falls within the past month. Support Persons: Sister, Adult Child Entry Into Home: [place] with Railing Steps Into Home: 1 (Pt reports one small step to enter apartment with railing. ) Shower and Tub Type: Tub/shower combo-rails Assist Devices: 4 WW, Other (W/C) Toilet Type: Standard Comment Pt reports using w/c and 4WW for functional mobility. Pt reports limited walking now due to decreased strength. Current Function Assessment Mental Status Patient Orientation: Person, Place, Time, Situation Mental Status: Alert Cognition Attention: Impaired Memory: Impaired Safety/Judgement: Impaired Visual/Perceptual Skills Glassess: Yes (Lined bifocals ) Hearing: Intact Hand Dominance Hand Dominance: Right ROM/Strength Range of Motion : ROM: WNL Strength Comment BUE 4-/5 Neurological Coordination: Minimally impaired Endurance Activity Endurance: Fair Bed Mobility/Transfers Bed Mobility: Maximum Sit to Stand: Moderate assist, 2 persons ADLs Grooming: Grooming Status: Setup/SBA Dressing Dressing: Moderate assist Toileting Toilet Hygiene: Moderate Assist CPT/G Codes Time In: 11:37 Time Out: 12:07 Total Minutes: 30 (10/29 eval ) CPT Codes: 04672 Eval< 20 minutes CLAU SHAW OT February 20, 2017 12:22
--- NOTE | 2017-02-20 12:27 | NUR ---
Sit to stand used to change attends and reposition. PT and OT have worked with patient and agree that sit to stand is safest mode of transfer for patient and staff at this time. Family at bedside.
--- NOTE | 2017-02-20 12:45 | NUR ---
Information sent to [facility] to review for acceptance for skilled care. Pt. has been accepted for skilled care at their facility. MELISSA visited with the family (son Rod and two neices) about Pt. going to skilled care and then possibly needing shelter placement after that. This is not a conversation the family has had yet. Pt. currently lives at home with her two sons. SW explained if they were looking at shelter placement then they would need to completed the Medicaid application and how to do this. Pt. reported she does not have a DPOA. MELISSA provided Pt. and family with DPOA and Living Will forms and explained the forms to Pt. She will review the forms.
--- NOTE | 2017-02-20 14:17 | NUR ---
Pt uses call light to request to go to the commode for BM- Used 2 assist and Rso-Gh-Brarh lift to transfer from recliner to BSC then to bed for a nap. Pt did not have a BM but passed gas and voided-missed hat. Paper chux placed under patient and attends left off for air to skin. Desitin applied to excoriated skin to buttock and left hip. Mepilex remains intact to Rt posterior lower extremity. Heel protectors in place to Bilat heels for pressure relieving measures. yellow gown, socks and bracelet in place, bed alarm turned on and tabs alarm on for patient safety- although patient does not try to get up alone. Call light within reach, door ajar for frequent visual monitoring.
[2017-02-20 15:27] VITALS: BP 129/67
--- NOTE | 2017-02-20 15:32 | NUR ---
Tylenol 650mg PO given for c/o bilat foot pain-gout.
--- NOTE | 2017-02-20 17:48 | NUR ---
Pt transferred back to chair using sit to stand lift and 2 assist. Pt tolerated this lift. Desitin applied to skin in open areas. Jessica, Flaco and Rod have left for supper but will come back before bedtime.
--- NOTE | 2017-02-20 20:14 | NUR ---
SpO2 92-93% on Room Air. Pt up in chair.
--- NOTE | 2017-02-20 20:30 | NUR ---
Pt. resting in recliner; visiting with her two sons; appears very cheerful. Pt. denies discomfort minus "general aches--and I have gout in my feet". H2O replenished; call light by left hand.
--- NOTE | 2017-02-20 21:07 | NUR ---
Accucheck is 194 this evening; Humalog 1 unit given per sliding scale insulin. Pt. resting in bed on her right side currently. Pt. was recently up to bedside commode via [id number] lift. Pt. had minimal void; incontinent; all excoriated areas patted with Desitin. Pt.'s respirations are even and unlabored on room air; call light and H2O within reach.
[2017-02-21 00:05] VITALS: BP 130/52
[2017-02-21] MEDS: ZINC OXIDE OINTMENT (DESITIN) 56.7 GM TUBE TOP PRN ×3 (01:50→20:20)
[2017-02-21] MEDS: ACETAMINOPHEN 325 MG TAB (TYLENOL) PO PRN ×2 (01:50→20:17)
--- NOTE | 2017-02-21 01:50 | NUR ---
Tylenol 650 mg PO given for pain in toes; "It's that gout!" Pt. just changed of incontinent void; Desitin applied to all distressed areas of skin on hips/legs. Pt. cooperative with activity; H2O refreshed. Call light within reach; bed alarm on for safety.
[2017-02-21] MEDS: LEVOTHYROXINE 150 MCG (LEVOTHROID) TABLET PO SCH (06:25)
[2017-02-21] MEDS: INSULIN LISPRO 1 UNIT/0.01 ML (HUMALOG) DOSE SC SCH ×4 (06:25→21:00)
--- NOTE | 2017-02-21 06:35 | NUR ---
Pt. takes PO med without difficulty. Incontinent void changed; Desitin 'patted' onto multiple open & healing areas. Pt. cooperative with activity; uses upper body strength. Accucheck is 103 this morning; sliding scale insulin not required. Heel protectors secure. Pt. is alert and pleasant.
[2017-02-21 07:35] VITALS: BP 159/76
--- NOTE | 2017-02-21 08:30 | NUR ---
Pt sitting up in chair at this time. Denies pain. SL intact. Skin warm, dry, intact. Resprs nonlabored, even on RA. Sit to stand lift utilized to transfer pt from bed to chair. Pt is alert, polite, cooperative. Denies needs. Call light within reach.
[2017-02-21] MEDS: lisINopril 40 MG (PRINIVIL) TABLET PO SCH (09:47)
[2017-02-21] MEDS: DIGOXIN 0.125 MG (LANOXIN) TAB PO SCH (09:47)
[2017-02-21] MEDS: CHOLECALCIFEROL 1000 INT UNITS (VITAMIN D3) TABLET PO SCH (09:47)
[2017-02-21] MEDS: ATORVASTATIN 10 MG (LIPITOR) TABLET PO SCH (09:47)
[2017-02-21] MEDS: ALLOPURINOL 100 MG (ZYLOPRIM) TAB PO SCH ×2 (09:47→20:17)
[2017-02-21] MEDS: OXYBUTYNIN 5 MG PO SCH (09:47)
[2017-02-21] MEDS: MULTIVITAMIN W/MINERALS (THERAGRAN M) TABLET PO SCH (09:48)
[2017-02-21] MEDS: meTOprolol TARTRATE 25 MG (LOPRESSOR) TABLET PO SCH (09:48)
[2017-02-21] MEDS: cefTRIAXone SODIUM 1,000 MG in SODIUM CHLORIDE 50 ML IV SCH (09:50)
[2017-02-21] MEDS: NS FLUSH 3 ML DAILY IV SCH (09:59)
--- NOTE | 2017-02-21 10:31 | Progress Note (E) ---
Progress Note SUBJECTIVE Overnight, no major issues reported. Vitals relatively stable. Has had 3 BM since admit. Frequently incontinent but getting good sage-care. Noted on CBC that Hgb trended down to 9.0 from 11.2 on admit. Checking stool for occult blood and monitoring Hgb trend. INR stable at 2.2 and warfarin was restarted. Urine culture grew Klebsiella oxytoca, resistant only to ampicillin. Blood culture remained negative. On exam, awake, alert, pleasant and interactive. She acknowledges feeling better overall though her feet hurt and she thinks it's because of her gout. No obvious inflammatory change on exam. Checking CRP and uric acid. Is already on allopurinol. Updated her and family on findings, plan of care. OBJECTIVE Vital Signs Date Time Temp Pulse Resp B/P Pulse Ox O2 Delivery O2 Flow Rate FiO2 02/21/17 07:35 97.6 115 20 159/76 97 Room air I & O 02/20/17 02/21/17 Cumulative From/Thru 19:00 07:00 02/18/17 17:50 - 02/21/17 06:06 Intake Total 992 ml 1820 ml 5820 ml Output Total 150 ml Balance 992 ml 1820 ml 5670 ml GEN: Awake, alert, interactive, oriented. NAD at present. HEENT: EOMI, clear sclerae, numerous SK on face. Moist oral mucosa. CV: Regular with prominent vibratory systolic murmur loudest at left sternal border, III/. (Correction from previous.) PULM: CTA B with mildly diminished bases but no R/R/W. ABD: Soft, NT/ND with normal bowel sounds. EXTR: Edema in ankles has improved. INTEG: Numerous SK on face, back. Skin tears/superficial desquamation related to pressure ulcers noted extensively over buttocks bilaterally, improving. ( Stage II pressure ulcers, present on admit.) Has another healing pressure ulcer in popliteal region of right knee. MS: No joint inflammation apparent in ankles or toes. NEURO: No apparent focal motor neuro deficit. Lab-Past 14 Days, 35 Results 02/18/17 18:00: Urine Bacteria 1+, Urine Bilirubin Negative, Urine Blood 1+H, Urine Clarity Slightly cloudy, Urine Collection Type Clean catch, Urine Color Yellow, Urine Glucose (UA) Negative, Urine Ketones Negative, Urine Leukocyte Esterase 1+H, Urine Microscopic RBC 0-2, Urine Nitrite Negative, Urine Protein TraceH, Urine Specific Raymond <=1.005, Urine Squamous Epithelial Cells 0-2, Urine Urobilinogen 0.2, Urine WBC 5-10H, Urine pH 5.5, Volume Urine Centrifuged 12 ml 02/18/17 18:28: Alanine Aminotransferase (ALT/SGPT) 34, Albumin 4.2, Albumin/Globulin Ratio 1.076L, Alkaline Phosphatase 87, Anion Gap 16.1H, Aspartate Amino Transf (AST/ SGOT) 29, BUN/Creatinine Ratio 43H, Basophils # (Auto) 0.1, Basophils (%) (Auto ) 0, Blood Urea Nitrogen 49H, C-Reactive Protein 7.30H, Calcium Level 9.3, Calcium/Ionized Calcium Ratio 3.8, Calculated Osmolality 271L, Carbon Dioxide Level 21L, Chloride Level 99, Creatinine 1.13, Digoxin Level 1.00, Eosinophils # (Auto) 0.0, Eosinophils (%) (Auto) 0, Estimat Glomerular Filtration Rate 55.5 , Estimated GFR (Non- 45.9, Glucose Level 173H, Hematocrit 32.60L, Hemoglobin 11.2L, Lymphocytes # (Auto) 0.8, Lymphocytes (%) (Auto) 6L, Mean Corpuscular Hemoglobin 30.5, Mean Corpuscular Hemoglobin Concent 34.4, Mean Corpuscular Volume 89, Mean Platelet Volume 8.6, Monocytes # (Auto) 1.0, Monocytes (%) (Auto) 8, FU-Ofn-G-Type Natriuretic Peptide 3060H, Neutrophils # ( Auto) 10.8, Neutrophils (%) (Auto) 85H, Platelet Count 390, Potassium Level 4.6 , Prothromb Time International Ratio 4.0H, Prothrombin Time 44.6H, Red Blood Count 3.67L, Red Cell Distribution Width 13.4, Smear Scan , Sodium Level 131L, Total Bilirubin 0.7, Total Protein 8.1, White Blood Count 12.72H 02/18/17 18:50: Lactic Acid Level 1.4 02/19/17 05:40: Anion Gap 13.7, BUN/Creatinine Ratio 36H, Basophils # (Auto) 0.0, Basophils (%) (Auto) 0, Blood Urea Nitrogen 37H, Calcium Level 8.7L, Carbon Dioxide Level 20L , Chloride Level 104, Creatinine 1.02, Eosinophils # (Auto) 0.0, Eosinophils (% ) (Auto) 0, Estimat Glomerular Filtration Rate 62.5, Estimated GFR (Non- 51.6, Glucose Level 152H, Hematocrit 28.40L, Hemoglobin 9.4L, Lymphocytes # (Auto) 1.1, Lymphocytes (%) (Auto) 11L, Mean Corpuscular Hemoglobin 29.8, Mean Corpuscular Hemoglobin Concent 33.1, Mean Corpuscular Volume 90, Mean Platelet Volume 9.1, Monocytes # (Auto) 1.4, Monocytes (%) (Auto ) 14H, Neutrophils # (Auto) 7.6, Neutrophils (%) (Auto) 75H, Platelet Count 323 , Potassium Level 3.9, Prothromb Time International Ratio 3.3H, Prothrombin Time 36.1H, Red Blood Count 3.15L, Red Cell Distribution Width 13.2, Sodium Level 134L, White Blood Count 10.14 02/20/17 05:20: Albumin 3.0#L, Anion Gap 10.8, Basophils # (Auto) 0.0, Basophils (%) (Auto) 0, Blood Urea Nitrogen 34H, Calcium Level 8.6L, Carbon Dioxide Level 24, Chloride Level 103, Creatinine 1.05, Eosinophils # (Auto) 0.1, Eosinophils (%) (Auto) 1, Estimat Glomerular Filtration Rate 60.4, Estimated GFR (Non- 49.9, Glucose Level 112#H, Hematocrit 27.30L, Hemoglobin 9.0L, Lymphocytes # ( Auto) 1.7, Lymphocytes (%) (Auto) 14L, Mean Corpuscular Hemoglobin 30.1, Mean Corpuscular Hemoglobin Concent 33.0, Mean Corpuscular Volume 91, Mean Platelet Volume 8.9, Monocytes # (Auto) 1.7, Monocytes (%) (Auto) 14H, Neutrophils # ( Auto) 8.5, Neutrophils (%) (Auto) 70H, Phosphorus Level 3.8, Platelet Count 323 , Potassium Level 4.0, Prothromb Time International Ratio 2.5H, Prothrombin Time 27.6H, Red Blood Count 2.99L, Red Cell Distribution Width 13.4, Sodium Level 134L, White Blood Count 12.12H 02/21/17 05:20: Prothromb Time International Ratio 2.2H, Prothrombin Time 24.9H MICRO 02/18 Blood culture Negative to date SPEC #: [id number] YAHAIRA: 02/18/17 STATUS: COMP REQ #: [id number] RECD: 02/18/[address]: JENS BAILEY MD Order Location: ED SOURCE: URINE DESCRIPTION: U CATH IND Procedure Result Verified URINE CULTURE Final Verified 02/21/17-725 AM Source: URINE / INDWELLING 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 oxytoca Antibiotic YISEL INT Ampicillin >=32 R Ampicillin/sulbactam 8 S Cefazolin 8 S Ceftriaxone <=1 S Ciprofloxacin <=0.25 S Gentamicin 4 S Nitrofurantoin 32 S Trimethoprim/Sulfa <=20 S S=SUSCEPTIBLE I=INTERMEDIATE R=RESISTANT S-DD= SUSCEPTIBLE, DOSE DEPENDENT IMAGING 02/19/17 Chest Xray Portable 1 View A/P Portable AP chest at 5:10 AM. INDICATION : Pneumonia. The heart size is within normal limits and stable when compared to 02/18/2017. The previous exam noted that the right heart border was indistinct and suggested that there was pneumonia/atelectasis involving the right middle lobe. On this exam the right heart border is better defined. There is only minimal if any residual pneumonia/atelectasis still present. The lungs are otherwise generally clear. There is no sign of failure, and is no pleural effusion identified. The mediastinum is not widened. The osseous structures are intact. IMPRESSION: The appearance of the chest has improved since the prior exam as the right middle lobe does seem better aerated. There is only minimal if any residual pneumonia/atelectasis still present in this area. Clinical followup is recommended. 02/18/17 CHEST 1 VIEW, AP/PA ONLY* INDICATION: Weakness. COMPARISON: 2012. FINDINGS: Single view of the chest demonstrates stable cardiac enlargement without pulmonary edema. There is some infiltrate in the right middle lobe. Left lung is clear. No pneumothorax or effusion seen. IMPRESSION: Probable right middle lobe infiltrate. Follow-up recommended. ASSESSMENT Devika Dueñas is a 86 year old female admitted from ED 02/18 for SIRS/sepsis attributed to community acquired pneumonia. She also had UTI due to Klebsiella oxytoca. She had diarrhea on admit as well. She has numerous chronic problems and there is concern about buttocks skin tears and poor ability for her to care for herself at home. PLAN * SIRS/Sepsis: Resolving. * Community Acquired Pneumonia: Blood culture negative to date. No sputum for culture. Acapella. Oxygen protocol but she has been on room air. Guaifenesin. Empiric ceftriaxone, azithromycin. * UTI due to Klebsiella oxytoca: Covered with ceftriaxone. * Diarrhea: Seems to have improved. If recurrent, check stool PCR panel. * Pressure Ulcers, Stage II, Buttocks: Extensive, present on admit, improving with pressure relieving strategies, barrier cream. * Normocytic anemia: Hgb 11.2 on admit, trended down to 9.0. On anticoagulation. Check stool for occult blood. Transfuse if Hgb < 8. * Coagulopathy: Due to warfarin. INR 4.0 on admit, 3.3 02/19. Held warfarin until 02/21 when INR drifted down to 2.2. * Deconditioning: PT/OT eval and treat. * F/E/N: Peripheral IV. IVF bolus on admit. Diabetic diet. I&O, daily weight. * Prophylaxis: Warfarin (on hold due to elevated INR.) * Code Status: Full * Dispo: Inpatient, expecting 3 day stay and may then benefit from skilled care. Possible discharge 02/22. CHRONIC ISSUES * Diabetes Mellitus Type II: Sliding scale. * Hypothyroidism: Levothyroxine * HTN: Metoprolol, lisinopril * Atrial fibrillation: Digoxin, warfarin. * Bladder Spasms: Oxybutynin * Pain: Tramadol. * HLD: Atorvastatin * Gout: Allopurinol. Check CRP and uric acid. Consider colchicine if concern for gout flare. RHIANNON ALEJANDRA MD February 21, 2017 10:21
[2017-02-21] MEDS ORDERED: POLYETHYLENE GLYCOL 17 GM (MIRALAX) PACKET PO PRN (10:50)
[2017-02-21] MEDS ORDERED: DOCUSATE SODIUM 100 MG (COLACE) CAP PO PRN (10:50)
[2017-02-21] MEDS ORDERED: MAGNESIUM HYDROXIDE 80MG/ML (MILK OF MAGNESIA) 30 ML UDC PO PRN (10:50)
--- NOTE | 2017-02-21 14:12 | NUR ---
MULTIDISCIPLINARY MTG/DR. ALEJANDRA: Pt. admitted on 02/18 with sepsis and pneumonia. Pt. has improved. Pt. was found to have several stage II decubitus ulcers. Pt. also has anemia. Will obtain a Hemoccult from a stool sample. If her hgb drops will complete a transfusion. Repeat labs in the morning. After discussions with Pt. family members they are in agreement that Pt. sons are doing the best they know how but they are not able to appropriately care for her anymore. Plan for Pt. to go to [facility] for skilled care and then transition to the alf at [facility]. MELISSA visited with the family (niece Brooklynn and nephew Satya (Gurdeep)) regarding what is needed in order to get Pt. admitted into the alf. Emmanuel visited with [facility] also about the steps they need to take to get her admitted. MELISSA visited with Pt. and family members about the importance of establishing a DPOA. After reviewing the form and discussing with her family Pt. did appoint Emmanuel as her agents. The original form was given to the Pt. and a copy was placed in the chart and faxed to [facility] with Pt and family's permission.
--- NOTE | 2017-02-21 14:42 | PT Daily Note Inpatient (E) ---
PT Daily Treatment Service Date/Time 02/21/17, 14:29 Medical Diagnosis: (1) Pneumonia ICD Code: J18.9 (2) Malaise and fatigue (3) Muscle weakness ICD Code: 728.87 Physical Therapy: (1) Malaise and fatigue (2) Muscle weakness ICD Code: 728.87 (3) Pneumonia ICD Code: J18.9 Precaution/Isolation: Standard Precautions Resuscitation Status: Full Code Fall Level: High Risk 51 or greater Subjective Pt sitting up in recliner visiting with niece and nephew. Agrees to therapy after some encouragement. Oxygen Delivery: Room air O2 liters/minute: 0 Treatments Sit, Stand, Supine: Sitting, Long Sitting Extremity: Both Lower Extremity Assistance: AAROM, AROM Repetition: 1 x 20 Exercise: AP, QS, Heel Slides, Hip Abduction, SLR, LAQ, Hip Flexion Transfers Sit-Stand from bed: Minimal Assistance (from chair with cues to scoot fwd, lean fwd, and push off with both hands.) Stand-Sit: Minimal Assistance (cues to reach back with both hands.) Gait Standing with FWW and min assist for 1'15", 1'30", and 2' with cues to pull hips fwd, extend knees, hold head up, and breathe. Gait Training: Limitations: Fatigue Education/Plan Assessment Response to Treatment: Improving Plan Patient will be seen: Daily Saturday-Saturday Coding Time In: 10:44 Time Out: 11:11 Total Minutes: 27 Charges: 87756 Exercise Therp 15 m (17 minutes), 88432 Ther Activity (10 minutes) Grady Bran PTA February 21, 2017 14:42
--- NOTE | 2017-02-21 14:47 | OT Daily Note Inpatient (E) ---
OT Daily Treatment Service Date/Time 02/21/17, 14:46 Primary Diagnosis: (1) Pneumonia ICD Code: J18.9 (2) Malaise and fatigue (3) Muscle weakness ICD Code: 728.87 Treatment Diagnosis: (1) Weakness ICD Code: R53.1 Onset Date: 02/19/17 Start of Care Date: February 20, 2017 Precaution/Isolation: Standard Precautions Fall Level: High Risk 51 or greater Resuscitation Status: Full Code Current Activity: Agrees to participate Pt reports doing okay, feet just hurt. Reports that is why she is not able to walk very well. Pain Level: 8 Pain Location/Comment Bilateral feet and in toes Oxygen Needed: Room air O2 liters/minute: 0 Current Function Assessment Mental Status Mental Status: Alert Cognition Attention: Impaired Memory: Impaired Safety/Judgement: Impaired Visual/Perceptual Skills Glassess: Yes (Lined bifocals ) Hearing: Intact Hand Dominance Hand Dominance: Right Treatments Strengthening Exercise Upper Extremity Strength Exerc : Comment Pt laying in bed upon therapist arrival. Completed bed mobility from supine to sitting at EOB with SBA and increased time. In sitting, pt participated in BUE strengthening with use of a red theraband. Pt completed 7 x 15 exercises with education on deep breathing following exercises. Following demonstration from therapist from therapist, pt was able to complete with minimal cueing for proper technique. Following exercises, complete transfer to chair with mod asisst x 2 and consistent cueing. Education/Assessment Rehabilitation Potential: Good Good participation in session this date. Motivation to get stronger and return home. POC Plan of Care Problems Identified: Activity Tolerance, ADLs, Balance, Lt UE Strength, Rt UE Strength, Safety Awareness Plan: Evaluation-OT, ADL/Self Care Management, Therapy Exercises, Therapy Activities, Pt/Family/Staff Education Frequency of OT: Five times weekly Duration of OT: Other (4 days ) Therapy to Include: ADL training, Balance with ADLs, Pt/family education, Therapeutic activities, UE strengthing Discharge Recommendations: TCU/Skilled NH Recommended Equipment at DC: Toiler riser w/ rails, Extended bath bench Pt. Aware of Dx and Prognosis: Yes Pt. Aware of Risk & Benefit: Yes Goals: Discussed with patient, Discussed with family Short Term Goals STG Time Frame: 4 Days Will Perform Grooming: Independently Will Dress Upper Extremity: With Setup/SBA Will Dress Lower Extremity: With Min Assistance Will do Bathing: With Min Assistance Will do Toileting: With Min Assistance Will Perform Funct Transfer: With Min Assistance STG #1 Pt will participate in 15 min of ther-ex with 4 or less rest breaks. CPT/G Codes Time In: 14:43 Time Out: 15:03 Total Minutes: 20 (10/19 TE) CPT Codes: 67993 Exercise Ther (10/19 TE) CLAU SHAW OT February 21, 2017 14:47
--- NOTE | 2017-02-21 15:21 | PT Daily Note Inpatient (E) ---
PT Daily Treatment Service Date/Time 02/21/17, 15:16 Medical Diagnosis: (1) Pneumonia ICD Code: J18.9 (2) Malaise and fatigue (3) Muscle weakness ICD Code: 728.87 Physical Therapy: (1) Malaise and fatigue (2) Muscle weakness ICD Code: 728.87 (3) Pneumonia ICD Code: J18.9 Precaution/Isolation: Standard Precautions Resuscitation Status: Full Code Fall Level: High Risk 51 or greater Subjective Pt just finished with OT, agrees to PT, upset about leaving her boys to live at the [facility] Pain Level: 0 Oxygen Delivery: Room air O2 liters/minute: 0 Treatments Sit, Stand, Supine: Sitting, Long Sitting Extremity: Both Lower Extremity Assistance: AAROM, AROM Repetition: 1 x 20 Exercise: Heel Slides, Hip Abduction, SLR, LAQ, Hip Flexion, External Rotation , Internal Rotation Transfers Sit-Stand from bed: Minimal Assistance Stand-Sit: Minimal Assistance Pivot Transfers: Moderate Assistance (assist to advance left foot forward) Education/Plan Assessment Pt requires reassurance to decrease anxiety concerning her abilities to transfer with min assist, will benefit from further SNF to work on strengthening and gait, pleasant to work with, motivated to ambulate again Safety Awareness: Impaired Response to Treatment: Improving Plan Cont POC Patient will be seen: Daily Saturday-Saturday Discharge Recommendations: TCU/Skilled NH Coding Time In: 1458 Time Out: 1514 Total Minutes: 16 Charges: 44480 Exercise Therp LEXIE Renteria PTA February 21, 2017 15:20
[2017-02-21 15:35] VITALS: BP 155/79
[2017-02-21] MEDS ORDERED: warFARin 1 MG (COUMADIN) TAB PO SCH (17:00)
--- NOTE | 2017-02-21 17:40 | NUR ---
PRN Colace and Miralax given at this time per pt request for c/o constipation. Pt has been up to the chair for majority of shift. Denies pain. Skin warm, dry, intact. Resprs nonlabored, even on RA. Pt denies needs. Call light within reach, will call for assistance.
--- NOTE | 2017-02-21 20:20 | NUR ---
Pt. was just moved from chair to bed with [id number] equipment; incontinent diaper changed/Desitin applied over multiple distressed areas. Pt. concerned with IV site; inspected/retaped & coban applied for security. Heel protectors applied bilaterally; pillows placed for comfort; tabs/bed alarm on for safety measures. Pt.'s room is in close proximity to nurse's station for frequent observation. Call light and H2O within reach.
--- NOTE | 2017-02-21 21:00 | NUR ---
Accucheck is 157 this evening; sliding scale insulin not required.
[2017-02-21 23:45] VITALS: BP 140/82
[2017-02-22] MEDS: ZINC OXIDE OINTMENT (DESITIN) 56.7 GM TUBE TOP PRN ×3 (01:15→05:40)
[2017-02-22 06:21] LABS: BASOPHILS % (AUTO) 1 % (0-2); EOSINOPHILS # (AUTO) 0.2 10^3uL; EOSINOPHILS % (AUTO) 2 % (0-4); LYMPHOCYTES # (AUTO) 2.4 X10^3; MEAN CORPUSCULAR HEMOGLOBIN 29.8 PG (26.0-34.0); MEAN CORPUSCULAR HGB CONC 32.9 g/dL (31.0-37.0); MEAN CORPUSCULAR VOLUME 91 FL (80-100); MEAN PLATELET VOLUME 8.9 FL (6.0-9.5); MONOCYTES # (AUTO) 1.1 X10^3; MONOCYTES % (AUTO) 11 % (3-11); NEUTROPHILS # (AUTO) 6.6 X10^3; NEUTROPHILS % (AUTO) 64 % (51-67); PLATELET COUNT 317 10^3uL (150-450); WHITE BLOOD COUNT 10.38 10^3uL (4.0-11.0)
[2017-02-22] MEDS: LEVOTHYROXINE 150 MCG (LEVOTHROID) TABLET PO SCH (06:34)
[2017-02-22] MEDS: ACETAMINOPHEN 325 MG TAB (TYLENOL) PO PRN (06:34)
--- NOTE | 2017-02-22 06:34 | NUR ---
Tylenol 650 mg PO given for pain in feet; heel protectors on. Accucheck this morning was 98; sliding scale insulin not required. Pt. checked and changed for incontinent voids regularly; Desitin applied to areas on hips/leg/buttocks. Several of the excoriated areas appear much improved from the time of admission. Pt. remains pleasant and cooperative.
[2017-02-22 06:41] LABS: ANION GAP 11.3 MEQ/L (3-15)
[2017-02-22] MEDS: INSULIN LISPRO 1 UNIT/0.01 ML (HUMALOG) DOSE SC SCH ×4 (06:44→21:06)
[2017-02-22 07:06] LABS: ERYTHROCYTE SEDIMENTATION RT* 85 mm/hr (0-23)
[2017-02-22 08:00] VITALS: BP 152/82
[2017-02-22] MEDS: lisINopril 40 MG (PRINIVIL) TABLET PO SCH (08:25)
[2017-02-22] MEDS: ATORVASTATIN 10 MG (LIPITOR) TABLET PO SCH (08:25)
[2017-02-22] MEDS: CHOLECALCIFEROL 1000 INT UNITS (VITAMIN D3) TABLET PO SCH (08:25)
[2017-02-22] MEDS: MULTIVITAMIN W/MINERALS (THERAGRAN M) TABLET PO SCH (08:25)
[2017-02-22] MEDS: OXYBUTYNIN 5 MG PO SCH (08:25)
[2017-02-22] MEDS: meTOprolol TARTRATE 25 MG (LOPRESSOR) TABLET PO SCH (08:25)
[2017-02-22] MEDS: ALLOPURINOL 100 MG (ZYLOPRIM) TAB PO SCH ×2 (08:26→20:14)
[2017-02-22] MEDS: cefTRIAXone SODIUM 1,000 MG in SODIUM CHLORIDE 50 ML IV SCH (08:26)
[2017-02-22] MEDS: DIGOXIN 0.125 MG (LANOXIN) TAB PO SCH (08:26)
[2017-02-22] MEDS: NS FLUSH 3 ML DAILY IV SCH (08:27)
--- NOTE | 2017-02-22 08:57 | PT Daily Note Inpatient (E) ---
PT Daily Treatment Service Date/Time 02/22/17, 08:56 Medical Diagnosis: (1) Pneumonia ICD Code: J18.9 (2) Malaise and fatigue (3) Muscle weakness ICD Code: 728.87 Physical Therapy: (1) Malaise and fatigue (2) Muscle weakness ICD Code: 728.87 (3) Pneumonia ICD Code: J18.9 Precaution/Isolation: Standard Precautions Resuscitation Status: Full Code Fall Level: High Risk 51 or greater Subjective Pt just finishing up breakfast and agrees to therapy. Oxygen Delivery: Room air O2 liters/minute: 0 Treatments Sit, Stand, Supine: Supine, Sitting Extremity: Both Lower Extremity Assistance: AROM Repetition: 1 x 20 Exercise: AP, QS, Heel Slides, Hip Abduction, SLR, LAQ, Hip Flexion, Bridge Transfers Rolling: Moderate Assistance (to lift legs onto bed.) Supine-Sit: Contact Guard Assist (using bedrail) Education/Plan Assessment LE strength is improving. Plan Patient will be seen: Daily Saturday-Saturday Discharge Recommendations: TCU/Skilled NH Coding Time In: 8:40 Time Out: 8:56 Total Minutes: 16 Charges: 41593 Exercise Therp 15 m (16 minutes) Grady Bran PTA February 22, 2017 08:57
--- NOTE | 2017-02-22 10:49 | NUR ---
Visitors at bedside. Patient up in chair alert and talkative.
[2017-02-22] MEDS: predniSONE 10 MG (DELTASONE) TABLET PO SCH (12:31)
--- NOTE | 2017-02-22 13:50 | PT Daily Note Inpatient (E) ---
PT Daily Treatment Service Date/Time 02/22/17, 13:46 Medical Diagnosis: (1) Pneumonia ICD Code: J18.9 (2) Malaise and fatigue (3) Muscle weakness ICD Code: 728.87 Physical Therapy: (1) Malaise and fatigue (2) Muscle weakness ICD Code: 728.87 (3) Pneumonia ICD Code: J18.9 Precaution/Isolation: Standard Precautions Resuscitation Status: Full Code Fall Level: High Risk 51 or greater Subjective pt just positioned in bed after nsg put her to bed with sit to stand lift, agrees to bed exercises Pain Level: 0 Oxygen Delivery: Room air O2 liters/minute: 0 Treatments Sit, Stand, Supine: Supine Extremity: Both Lower Extremity Assistance: AAROM, AROM Repetition: 2 x 10 Exercise: AP, QS, Heel Slides, Hip Abduction, SLR, Hip Flexion Transfers Rolling: Complete [place] Education/Plan Assessment Pt c/o gout yet does not c/o pain when left foot/toes are palpated, strength improving, left on right s/l to prevent further breakdown of sacral ulcer Safety Awareness: Impaired Response to Treatment: Improving Plan Cont POC, look to d/c SNF here on 02/23 Patient will be seen: Daily Saturday-Saturday Discharge Recommendations: TCU/Skilled NH Coding Time In: 1327 Time Out: 1342 Total Minutes: 15 Charges: 33966 Exercise Therp LEXIE Renteria TRAVELING SALES REPRESENTATIVE February 22, 2017 13:50
--- NOTE | 2017-02-22 14:53 | Progress Note (E) ---
Progress Note SUBJECTIVE Discharge deferred because Hgb down to 8.5. Occult blood positive. She was coagulopathic on admit. Perhaps she is not tolerating warfarin. Updated family on change of plans and recommended cessation of warfarin because of anemia. Started iron. Still having pains in feet and noted ESR and CRP are elevated ( CRP slightly up from previous despite treating for UTI.) Added prednisone for possible gout flare. Changed plan... if Hgb stable tomorrow (not needing transfusion) plant o swing here for 1 week then if medically stable, to [facility] for longer course. On exam, awake, alert, interactive, oriented. Is tearful somewhat today. Says in the last few days she has been more tearful when family visits, but it isn't out of fear. Says she has been very appreciative of family and medical care, feels safe. Discussed possibility of depression and is agreeable to continue sharing her feelings and to let us know if she would like to try medicine for her mood. OBJECTIVE Vital Signs Date Time Temp Pulse Resp B/P Pulse Ox O2 Delivery O2 Flow Rate FiO2 02/22/17 08:00 97.2 94 18 152/82 97 Room air I & O 02/21/17 02/22/17 Cumulative From/Thru 19:00 07:00 02/18/17 17:50 - 02/22/17 06:03 Intake Total 1142 ml 811 ml 7773 ml Output Total 500 ml 650 ml Balance 642 ml 811 ml 7123 ml GEN: Awake, alert, interactive, oriented. NAD at present. HEENT: EOMI, clear sclerae, numerous SK on face. Moist oral mucosa. CV: Regular with prominent vibratory systolic murmur loudest at left sternal border, III/. (Correction from previous.) PULM: CTA B with mildly diminished bases but no R/R/W. ABD: Soft, NT/ND with normal bowel sounds. EXTR: Edema in ankles has improved. INTEG: Numerous SK on face, back. Skin tears/superficial desquamation related to pressure ulcers noted extensively over buttocks bilaterally, improving. ( Stage II pressure ulcers, present on admit.) Has another healing pressure ulcer in popliteal region of right knee. MS: No joint inflammation apparent in ankles or toes. NEURO: No apparent focal motor neuro deficit. Lab-Past 14 Days, 35 Results 02/18/17 18:00: Urine Bacteria 1+, Urine Bilirubin Negative, Urine Blood 1+H, Urine Clarity Slightly cloudy, Urine Collection Type Clean catch, Urine Color Yellow, Urine Glucose (UA) Negative, Urine Ketones Negative, Urine Leukocyte Esterase 1+H, Urine Microscopic RBC 0-2, Urine Nitrite Negative, Urine Protein TraceH, Urine Specific [place] <=1.005, Urine Squamous Epithelial Cells 0-2, Urine Urobilinogen 0.2, Urine WBC 5-10H, Urine pH 5.5, Volume Urine Centrifuged 12 ml 02/18/17 18:28: Alanine Aminotransferase (ALT/SGPT) 34, Albumin 4.2, Albumin/Globulin Ratio 1.076L, Alkaline Phosphatase 87, Anion Gap 16.1H, Aspartate Amino Transf (AST/ SGOT) 29, BUN/Creatinine Ratio 43H, Basophils # (Auto) 0.1, Basophils (%) (Auto ) 0, Blood Urea Nitrogen 49H, C-Reactive Protein 7.30H, Calcium Level 9.3, Calcium/Ionized Calcium Ratio 3.8, Calculated Osmolality 271L, Carbon Dioxide Level 21L, Chloride Level 99, Creatinine 1.13, Digoxin Level 1.00, Eosinophils # (Auto) 0.0, Eosinophils (%) (Auto) 0, Estimat Glomerular Filtration Rate 55.5 , Estimated GFR (Non- 45.9, Glucose Level 173H, Hematocrit 32.60L, Hemoglobin 11.2L, Lymphocytes # (Auto) 0.8, Lymphocytes (%) (Auto) 6L, Mean Corpuscular Hemoglobin 30.5, Mean Corpuscular Hemoglobin Concent 34.4, Mean Corpuscular Volume 89, Mean Platelet Volume 8.6, Monocytes # (Auto) 1.0, Monocytes (%) (Auto) 8, SF-Sfa-A-Type Natriuretic Peptide 3060H, Neutrophils # ( Auto) 10.8, Neutrophils (%) (Auto) 85H, Platelet Count 390, Potassium Level 4.6 , Prothromb Time International Ratio 4.0H, Prothrombin Time 44.6H, Red Blood Count 3.67L, Red Cell Distribution Width 13.4, Smear Scan , Sodium Level 131L, Total Bilirubin 0.7, Total Protein 8.1, White Blood Count 12.72H 02/18/17 18:50: Lactic Acid Level 1.4 02/19/17 05:40: Anion Gap 13.7, BUN/Creatinine Ratio 36H, Basophils # (Auto) 0.0, Basophils (%) (Auto) 0, Blood Urea Nitrogen 37H, Calcium Level 8.7L, Carbon Dioxide Level 20L , Chloride Level 104, Creatinine 1.02, Eosinophils # (Auto) 0.0, Eosinophils (% ) (Auto) 0, Estimat Glomerular Filtration Rate 62.5, Estimated GFR (Non- 51.6, Glucose Level 152H, Hematocrit 28.40L, Hemoglobin 9.4L, Lymphocytes # (Auto) 1.1, Lymphocytes (%) (Auto) 11L, Mean Corpuscular Hemoglobin 29.8, Mean Corpuscular Hemoglobin Concent 33.1, Mean Corpuscular Volume 90, Mean Platelet Volume 9.1, Monocytes # (Auto) 1.4, Monocytes (%) (Auto ) 14H, Neutrophils # (Auto) 7.6, Neutrophils (%) (Auto) 75H, Platelet Count 323 , Potassium Level 3.9, Prothromb Time International Ratio 3.3H, Prothrombin Time 36.1H, Red Blood Count 3.15L, Red Cell Distribution Width 13.2, Sodium Level 134L, White Blood Count 10.14 02/20/17 05:20: Albumin 3.0#L, Anion Gap 10.8, Basophils # (Auto) 0.0, Basophils (%) (Auto) 0, Blood Urea Nitrogen 34H, Calcium Level 8.6L, Carbon Dioxide Level 24, Chloride Level 103, Creatinine 1.05, Eosinophils # (Auto) 0.1, Eosinophils (%) (Auto) 1, Estimat Glomerular Filtration Rate 60.4, Estimated GFR (Non- 49.9, Glucose Level 112#H, Hematocrit 27.30L, Hemoglobin 9.0L, Lymphocytes # ( Auto) 1.7, Lymphocytes (%) (Auto) 14L, Mean Corpuscular Hemoglobin 30.1, Mean Corpuscular Hemoglobin Concent 33.0, Mean Corpuscular Volume 91, Mean Platelet Volume 8.9, Monocytes # (Auto) 1.7, Monocytes (%) (Auto) 14H, Neutrophils # ( Auto) 8.5, Neutrophils (%) (Auto) 70H, Phosphorus Level 3.8, Platelet Count 323 , Potassium Level 4.0, Prothromb Time International Ratio 2.5H, Prothrombin Time 27.6H, Red Blood Count 2.99L, Red Cell Distribution Width 13.4, Sodium Level 134L, White Blood Count 12.12H 02/21/17 05:20: Prothromb Time International Ratio 2.2H, Prothrombin Time 24.9H 02/21/17 13:32: Stool Occult Blood Positive 02/22/17 05:30: Albumin 3.0L, Anion Gap 11.3, Basophils # (Auto) 0.1, Basophils (%) (Auto) 1, Blood Urea Nitrogen 26H, Calcium Level 8.1L, Carbon Dioxide Level 22, Chloride Level 106, Creatinine 0.90, Eosinophils # (Auto) 0.2, Eosinophils (%) (Auto) 2, Estimat Glomerular Filtration Rate 72.2, Estimated GFR (Non- 59.7, Glucose Level 103, Hematocrit 25.80L, Hemoglobin 8.5L, Lymphocytes # (Auto ) 2.4, Lymphocytes (%) (Auto) 23, Mean Corpuscular Hemoglobin 29.8, Mean Corpuscular Hemoglobin Concent 32.9, Mean Corpuscular Volume 91, Mean Platelet Volume 8.9, Monocytes # (Auto) 1.1, Monocytes (%) (Auto) 11, Neutrophils # (Auto ) 6.6, Neutrophils (%) (Auto) 64, Phosphorus Level 3.4, Platelet Count 317, Potassium Level 3.9, Prothromb Time International Ratio 1.7H, Prothrombin Time 18.5H, Red Blood Count 2.85L, Red Cell Distribution Width 13.2, Sodium Level 135 , White Blood Count 10.38, C-Reactive Protein 7.90H, Erythrocyte Sedimentation Rate 85H, Smear Scan Yes, Uric Acid 5.2 MICRO 02/18 Blood culture Negative to date SPEC #: [id number] YAHAIRA: 02/18/17 STATUS: COMP REQ #: [id number] RECD: 02/18/[address]: JENS BAILEY MD Order Location: ED SOURCE: URINE DESCRIPTION: U CATH IND Procedure Result Verified URINE CULTURE Final Verified 02/21/17-07 AM Source: URINE / INDWELLING CATH ([facility]) Order Location: EMERGENCY Site: U CATH IND Received : 02/19/17 13:48 Order#: [id number] Urine Culture FINAL 02/21/17 07:25 S Klebsiella oxytoca >100,000 cfu/ml K. oxytoca Antibiotic YISEL INT Ampicillin >=32 R Ampicillin/sulbactam 8 S Cefazolin 8 S Ceftriaxone <=1 S Ciprofloxacin <=0.25 S Gentamicin 4 S Nitrofurantoin 32 S Trimethoprim/Sulfa <=20 S S=SUSCEPTIBLE I=INTERMEDIATE R=RESISTANT S-DD= SUSCEPTIBLE, DOSE DEPENDENT IMAGING 02/19/17 Chest Xray Portable 1 View A/P Portable AP chest at 5:10 AM. INDICATION : Pneumonia. The heart size is within normal limits and stable when compared to 02/18/2017. The previous exam noted that the right heart border was indistinct and suggested that there was pneumonia/atelectasis involving the right middle lobe. On this exam the right heart border is better defined. There is only minimal if any residual pneumonia/atelectasis still present. The lungs are otherwise generally clear. There is no sign of failure, and is no pleural effusion identified. The mediastinum is not widened. The osseous structures are intact. IMPRESSION: The appearance of the chest has improved since the prior exam as the right middle lobe does seem better aerated. There is only minimal if any residual pneumonia/atelectasis still present in this area. Clinical followup is recommended. 02/18/17 CHEST 1 VIEW, AP/PA ONLY* INDICATION: Weakness. COMPARISON: 2012. FINDINGS: Single view of the chest demonstrates stable cardiac enlargement without pulmonary edema. There is some infiltrate in the right middle lobe. Left lung is clear. No pneumothorax or effusion seen. IMPRESSION: Probable right middle lobe infiltrate. Follow-up recommended. ASSESSMENT Devika Dueñas is a 86 year old female admitted from ED 02/18 for SIRS/sepsis attributed to community acquired pneumonia. She also had UTI due to Klebsiella oxytoca. She had diarrhea on admit as well. She has numerous chronic problems and there is concern about buttocks skin tears and poor ability for her to care for herself at home. PLAN * SIRS/Sepsis: Resolving. * Community Acquired Pneumonia: Blood culture negative to date. No sputum for culture. Acapella. Oxygen protocol but she has been on room air. Guaifenesin. Empiric ceftriaxone, azithromycin. * UTI due to Klebsiella oxytoca: Covered with ceftriaxone. * Diarrhea: Seems to have improved. If recurrent, check stool PCR panel. * Pressure Ulcers, Stage II, Buttocks: Extensive, present on admit, improving with pressure relieving strategies, barrier cream. * Normocytic anemia: Hgb 11.2 on admit, trended down to 8.5. On anticoagulation. Stool for occult blood. Discussed risk/benefit of warfarin and stopped this for now. Monitor trend and transfuse if Hgb < 8. Started iron supplement 02/22. * Coagulopathy: Resolved. Due to warfarin. INR 4.0 on admit, 3.3 02/19. Held warfarin until 02/21 when INR drifted down to 2.2. In light of anemia and occult blood in stool, stopped warfarin altogether. * Gout, Bilateral Foot Pain: Already takes allopurinol. CRP and ESR elevated. Uric acid normal. With foot pain, considered acute flare. Relative contraindication to NSAID. Prednisone x 5 days. * Deconditioning: PT/OT eval and treat. * F/E/N: Peripheral IV. IVF bolus on admit. Diabetic diet. I&O, daily weight. * Prophylaxis: Warfarin (on hold due to elevated INR.) * Code Status: Full * Dispo: Inpatient. If hgb stable in AM, transition to skilled care here x 1 week, then to [facility] for longer rehab course. CHRONIC ISSUES * Diabetes Mellitus Type II: Sliding scale. * Hypothyroidism: Levothyroxine * HTN: Metoprolol, lisinopril * Atrial fibrillation: Digoxin, warfarin. * Bladder Spasms: Oxybutynin * Pain: Tramadol. * HLD: Atorvastatin RHIANNON ALEJANDRA MD February 22, 2017 14:39
[2017-02-22 15:15] VITALS: BP 174/97
--- NOTE | 2017-02-22 17:30 | OT Daily Note Inpatient (E) ---
OT Daily Treatment Service Date/Time 02/22/17, 17:30 Primary Diagnosis: (1) Pneumonia ICD Code: J18.9 (2) Malaise and fatigue (3) Muscle weakness ICD Code: 728.87 Treatment Diagnosis: (1) Weakness ICD Code: R53.1 Onset Date: 02/19/17 Start of Care Date: February 20, 2017 Precaution/Isolation: Standard Precautions Fall Level: High Risk 51 or greater Resuscitation Status: Full Code Oxygen Needed: Room air O2 liters/minute: 0 Current Function Assessment Cognition Attention: Impaired Memory: Impaired Safety/Judgement: Impaired Visual/Perceptual Skills Glassess: Yes (Lined bifocals ) Hearing: Intact Hand Dominance Hand Dominance: Right Education/Assessment Rehabilitation Potential: Good POC Plan of Care Problems Identified: Activity Tolerance, ADLs, Balance, Lt UE Strength, Rt UE Strength, Safety Awareness Plan: Evaluation-OT, ADL/Self Care Management, Therapy Exercises, Therapy Activities, Pt/Family/Staff Education Frequency of OT: Five times weekly Duration of OT: Other (4 days ) Therapy to Include: ADL training, Balance with ADLs, Pt/family education, Therapeutic activities, UE strengthing Discharge Recommendations: TCU/Skilled NH Recommended Equipment at DC: Toiler riser w/ rails, Extended bath bench Pt. Aware of Dx and Prognosis: Yes Pt. Aware of Risk & Benefit: Yes Goals: Discussed with patient, Discussed with family Short Term Goals STG Time Frame: 4 Days Will Perform Grooming: Independently Will Dress Upper Extremity: With Setup/SBA Will Dress Lower Extremity: With Min Assistance Will do Bathing: With Min Assistance Will do Toileting: With Min Assistance Will Perform Funct Transfer: With Min Assistance STG #1 Pt will participate in 15 min of ther-ex with 4 or less rest breaks. CPT/G Codes No Treatment Provide Reason: Other (Unable to see patient this date secondary to therpist's schedule. ) CLAU SHAW OT February 22, 2017 17:30
[2017-02-22] MEDS: FERROUS SULFATE 325 MG (IRON) TABLET PO SCH (17:41)
--- NOTE | 2017-02-22 17:53 | NUR ---
Pt naps in the bed this afternoon. Sits to edge of bed late afternoon and moves to chair for supper. Utilizes [id number] to transfer. SL intact.
[2017-02-22] MEDS: DOCUSATE SODIUM 100 MG (COLACE) CAP PO SCH (20:14)
[2017-02-22 23:46] VITALS: BP 122/56
[2017-02-23 06:06] LABS: MEAN CORPUSCULAR HEMOGLOBIN 29.4 PG (26.0-34.0); MEAN CORPUSCULAR HGB CONC 32.6 g/dL (31.0-37.0); MEAN CORPUSCULAR VOLUME 90 FL (80-100); MEAN PLATELET VOLUME 8.7 FL (6.0-9.5); PLATELET COUNT 332 10^3uL (150-450)
[2017-02-23] MEDS: LEVOTHYROXINE 150 MCG (LEVOTHROID) TABLET PO SCH (06:17)
--- NOTE | 2017-02-23 06:29 | NUR ---
Patient rests in bed throughout night. Incontinent of urine, changed when necessary and turned frequently. Patient has no reports of pain or needs throughout night. Resting in bed with eyes closed at this time.
[2017-02-23 06:57] LABS: LYMPHOCYTES # 2.2 #; MONOCYTES # 0.9 #; MONOCYTES % 8 % (3-11); RBC MORPH NORMAL (NORMAL); SEGMENTED NEUTROPHILS % 70 % (51-67); TOTAL CELLS COUNTED 100
[2017-02-23] MEDS: INSULIN LISPRO 1 UNIT/0.01 ML (HUMALOG) DOSE SC SCH (07:30)
[2017-02-23 08:05] VITALS: BP 185/89
[2017-02-23] MEDS: ACETAMINOPHEN 325 MG TAB (TYLENOL) PO PRN (08:31)
[2017-02-23] MEDS: meTOprolol TARTRATE 25 MG (LOPRESSOR) TABLET PO SCH (08:31)
[2017-02-23] MEDS: CHOLECALCIFEROL 1000 INT UNITS (VITAMIN D3) TABLET PO SCH (08:32)
[2017-02-23] MEDS: ALLOPURINOL 100 MG (ZYLOPRIM) TAB PO SCH (08:32)
[2017-02-23] MEDS: ATORVASTATIN 10 MG (LIPITOR) TABLET PO SCH (08:32)
[2017-02-23] MEDS: FERROUS SULFATE 325 MG (IRON) TABLET PO SCH (08:33)
[2017-02-23] MEDS: DOCUSATE SODIUM 100 MG (COLACE) CAP PO SCH (08:33)
[2017-02-23] MEDS: DIGOXIN 0.125 MG (LANOXIN) TAB PO SCH (08:34)
[2017-02-23] MEDS: lisINopril 40 MG (PRINIVIL) TABLET PO SCH (08:34)
[2017-02-23] MEDS: MULTIVITAMIN W/MINERALS (THERAGRAN M) TABLET PO SCH (08:34)
[2017-02-23] MEDS: OXYBUTYNIN 5 MG PO SCH (08:35)
[2017-02-23] MEDS: predniSONE 10 MG (DELTASONE) TABLET PO SCH (08:36)
[2017-02-23] MEDS: NS FLUSH 3 ML DAILY IV SCH (08:37)
[2017-02-23] MEDS: cefTRIAXone SODIUM 1,000 MG in SODIUM CHLORIDE 50 ML IV SCH (08:38)
[2017-02-23] MEDS ORDERED: POLYETHYLENE GLYCOL 17 GM (MIRALAX) PACKET PO SCH (09:00)
--- NOTE | 2017-02-23 09:31 | NUR ---
Pt dismissed from inpatient account, will transfer to SWB account at this facility.
--- NOTE | 2017-02-23 10:16 | Discharge Summary (E) ---
Discharge Summary (E) Admit Date/Time February 18, 2017 at 20:12 Discharge Date/Time February 23, 2017 at 09:27 Admitting Provider Marcus Sanchez MD Primary Care Provider Kaya Siddiqi MD Attending Provider Marcus Sanchez MD, Michael MD Consulting Provider History and Present Illness Devika Dueñas is a 86 year old female admitted from ED 02/18 for SIRS/sepsis attributed to community acquired pneumonia. She also had UTI due to Klebsiella oxytoca. She had diarrhea on admit as well. She has numerous chronic problems and there was concern about buttocks skin tears and poor ability for her to care for herself at home. Details of her hospitalization are as follows. She did improve but was felt to benefit from further rehab in skilled care. Because of concern about anemia and foot pain, it was felt best to start her senior care course here for benefit of close medical supervision of her chronic and resolving acute issues. Hospital Course and Treatment * SIRS/Sepsis: Resolved. * Community Acquired Pneumonia: Blood culture negative to date. No sputum for culture. Acapella. Oxygen protocol but she has been on room air. Guaifenesin. Empiric ceftriaxone, azithromycin. * UTI due to Klebsiella oxytoca: Resolving. Covered with ceftriaxone. * Diarrhea: Seems to have improved. If recurrent, check stool PCR panel. * Pressure Ulcers, Stage II, Buttocks: Extensive, present on admit. Noted that at home she had become bedbound/chair-bound and though sons had been trying to care for her, she wasn't getting consistently good sage-care or repositioning. Much improving with pressure relieving strategies, barrier cream. Expected to resolve. * Normocytic anemia: Hgb 11.2 on admit, trended down to 8.3 at the time of transition to skilled care. Had been on anticoagulation and was coagulopathic on admit. Stool was positive for occult blood. Discussed risk/benefit of warfarin and stopped warfarin for now because of anemia. Started iron supplement. Monitor trend and transfuse if Hgb < 8. * Coagulopathy: Resolved. Due to warfarin. INR 4.0 on admit, 1.3 at time of transition to skilled care. Stopped warfarin altogether in light of anemia and positive occult blood in stool. * Occult blood in stool: Attributed to adverse effect of warfarin. If anemia does not improve and occult blood in stool persists, refer to surgery for consideration of colonoscopy. * Gout, Bilateral Foot Pain: Already takes allopurinol. CRP and ESR elevated. Uric acid normal. With foot pain, considered acute flare. Relative contraindication to NSAID. Prednisone x 5 days. * Deconditioning: PT/OT eval and treat. Continue in skilled care. * F/E/N: Peripheral IV. IVF bolus on admit. Diabetic diet. I&O, daily weight. * Prophylaxis: Warfarin stopped. SCDs. * Code Status: Full * Dispo: Inpatient. Transitioned to skilled care at [facility] 02/23. CHRONIC ISSUES * Diabetes Mellitus Type II: Sliding scale. * Hypothyroidism: Levothyroxine * HTN: Metoprolol, lisinopril * Atrial fibrillation: Digoxin. Warfarin stopped. * Bladder Spasms: Oxybutynin * Pain: Tramadol. * HLD: Atorvastatin Discharge Physicial Exam General Vital Signs Date Time Temp Pulse Resp B/P Pulse Ox O2 Delivery O2 Flow Rate FiO2 02/23/17 08:05 97.6 119 18 185/89 97 Room air 0.00 GEN: Awake, alert, interactive, oriented. NAD at present. HEENT: EOMI, clear sclerae, numerous SK on face. Moist oral mucosa. CV: Regular with prominent vibratory systolic murmur loudest at left sternal border, III/. (Correction from previous.) PULM: CTA B with mildly diminished bases but no R/R/W. ABD: Soft, NT/ND with normal bowel sounds. EXTR: Edema in ankles has improved. INTEG: Numerous SK on face, back. Skin tears/superficial desquamation related to pressure ulcers noted extensively over buttocks bilaterally, improving. ( Stage II pressure ulcers, present on admit.) Has another healing pressure ulcer in popliteal region of right knee. MS: No joint inflammation apparent in ankles or toes. NEURO: No apparent focal motor neuro deficit. Laboratory/Radiology Data Relevant labs discussed above. Full details: Laboratory Results-14 Days 02/18/17 18:00: Urine Bacteria 1+, Urine Bilirubin Negative, Urine Blood 1+H, Urine Clarity Slightly cloudy, Urine Collection Type Clean catch, Urine Color Yellow, Urine Glucose (UA) Negative, Urine Ketones Negative, Urine Leukocyte Esterase 1+H, Urine Microscopic RBC 0-2, Urine Nitrite Negative, Urine Protein TraceH, Urine Specific [place] <=1.005, Urine Squamous Epithelial Cells 0-2, Urine Urobilinogen 0.2, Urine WBC 5-10H, Urine pH 5.5, Volume Urine Centrifuged 12 ml 02/18/17 18:28: Alanine Aminotransferase (ALT/SGPT) 34, Albumin 4.2, Albumin/Globulin Ratio 1.076L, Alkaline Phosphatase 87, Anion Gap 16.1H, Aspartate Amino Transf (AST/ SGOT) 29, BUN/Creatinine Ratio 43H, Basophils # (Auto) 0.1, Basophils (%) (Auto ) 0, Blood Urea Nitrogen 49H, C-Reactive Protein 7.30H, Calcium Level 9.3, Calcium/Ionized Calcium Ratio 3.8, Calculated Osmolality 271L, Carbon Dioxide Level 21L, Chloride Level 99, Creatinine 1.13, Digoxin Level 1.00, Eosinophils # (Auto) 0.0, Eosinophils (%) (Auto) 0, Estimat Glomerular Filtration Rate 55.5 , Estimated GFR (Non- 45.9, Glucose Level 173H, Hematocrit 32.60L, Hemoglobin 11.2L, Lymphocytes # (Auto) 0.8, Lymphocytes (%) (Auto) 6L, Mean Corpuscular Hemoglobin 30.5, Mean Corpuscular Hemoglobin Concent 34.4, Mean Corpuscular Volume 89, Mean Platelet Volume 8.6, Monocytes # (Auto) 1.0, Monocytes (%) (Auto) 8, JU-Knz-E-Type Natriuretic Peptide 3060H, Neutrophils # ( Auto) 10.8, Neutrophils (%) (Auto) 85H, Platelet Count 390, Potassium Level 4.6 , Prothromb Time International Ratio 4.0H, Prothrombin Time 44.6H, Red Blood Count 3.67L, Red Cell Distribution Width 13.4, Smear Scan , Sodium Level 131L, Total Bilirubin 0.7, Total Protein 8.1, White Blood Count 12.72H 02/18/17 18:50: Lactic Acid Level 1.4 02/19/17 05:40: Anion Gap 13.7, BUN/Creatinine Ratio 36H, Basophils # (Auto) 0.0, Basophils (%) (Auto) 0, Blood Urea Nitrogen 37H, Calcium Level 8.7L, Carbon Dioxide Level 20L , Chloride Level 104, Creatinine 1.02, Eosinophils # (Auto) 0.0, Eosinophils (% ) (Auto) 0, Estimat Glomerular Filtration Rate 62.5, Estimated GFR (Non- 51.6, Glucose Level 152H, Hematocrit 28.40L, Hemoglobin 9.4L, Lymphocytes # (Auto) 1.1, Lymphocytes (%) (Auto) 11L, Mean Corpuscular Hemoglobin 29.8, Mean Corpuscular Hemoglobin Concent 33.1, Mean Corpuscular Volume 90, Mean Platelet Volume 9.1, Monocytes # (Auto) 1.4, Monocytes (%) (Auto ) 14H, Neutrophils # (Auto) 7.6, Neutrophils (%) (Auto) 75H, Platelet Count 323 , Potassium Level 3.9, Prothromb Time International Ratio 3.3H, Prothrombin Time 36.1H, Red Blood Count 3.15L, Red Cell Distribution Width 13.2, Sodium Level 134L, White Blood Count 10.14 02/20/17 05:20: Albumin 3.0#L, Anion Gap 10.8, Basophils # (Auto) 0.0, Basophils (%) (Auto) 0, Blood Urea Nitrogen 34H, Calcium Level 8.6L, Carbon Dioxide Level 24, Chloride Level 103, Creatinine 1.05, Eosinophils # (Auto) 0.1, Eosinophils (%) (Auto) 1, Estimat Glomerular Filtration Rate 60.4, Estimated GFR (Non- 49.9, Glucose Level 112#H, Hematocrit 27.30L, Hemoglobin 9.0L, Lymphocytes # ( Auto) 1.7, Lymphocytes (%) (Auto) 14L, Mean Corpuscular Hemoglobin 30.1, Mean Corpuscular Hemoglobin Concent 33.0, Mean Corpuscular Volume 91, Mean Platelet Volume 8.9, Monocytes # (Auto) 1.7, Monocytes (%) (Auto) 14H, Neutrophils # ( Auto) 8.5, Neutrophils (%) (Auto) 70H, Phosphorus Level 3.8, Platelet Count 323 , Potassium Level 4.0, Prothromb Time International Ratio 2.5H, Prothrombin Time 27.6H, Red Blood Count 2.99L, Red Cell Distribution Width 13.4, Sodium Level 134L, White Blood Count 12.12H 02/21/17 05:20: Prothromb Time International Ratio 2.2H, Prothrombin Time 24.9H 02/21/17 13:32: Stool Occult Blood Positive 02/22/17 05:30: Albumin 3.0L, Anion Gap 11.3, Basophils # (Auto) 0.1, Basophils (%) (Auto) 1, Blood Urea Nitrogen 26H, Calcium Level 8.1L, Carbon Dioxide Level 22, Chloride Level 106, Creatinine 0.90, Eosinophils # (Auto) 0.2, Eosinophils (%) (Auto) 2, Estimat Glomerular Filtration Rate 72.2, Estimated GFR (Non- 59.7, Glucose Level 103, Hematocrit 25.80L, Hemoglobin 8.5L, Lymphocytes # (Auto ) 2.4, Lymphocytes (%) (Auto) 23, Mean Corpuscular Hemoglobin 29.8, Mean Corpuscular Hemoglobin Concent 32.9, Mean Corpuscular Volume 91, Mean Platelet Volume 8.9, Monocytes # (Auto) 1.1, Monocytes (%) (Auto) 11, Neutrophils # (Auto ) 6.6, Neutrophils (%) (Auto) 64, Phosphorus Level 3.4, Platelet Count 317, Potassium Level 3.9, Prothromb Time International Ratio 1.7H, Prothrombin Time 18.5H, Red Blood Count 2.85L, Red Cell Distribution Width 13.2, Sodium Level 135 , White Blood Count 10.38, C-Reactive Protein 7.90H, Erythrocyte Sedimentation Rate 85H, Smear Scan Yes, Uric Acid 5.2 02/23/17 05:30: Atypical Lymphocytes 3, Basophils # (Auto) , Basophils (%) (Auto) , Blood Morphology Comment Normal, Differential Total Cells Counted 100, Eosinophils # ( Auto) , Eosinophils (%) (Auto) , Hematocrit 27.00L, Hemoglobin 8.8L, Lymphocytes # 2.2, Lymphocytes # (Auto) , Lymphocytes % (Manual) 19L, Lymphocytes (%) (Auto) , Mean Corpuscular Hemoglobin 29.4, Mean Corpuscular Hemoglobin Concent 32.6, Mean Corpuscular Volume 90, Mean Platelet Volume 8.7, Monocytes # 0.9, Monocytes # (Auto) , Monocytes % (Manual) 8, Monocytes (%) ( Auto) , Neutrophils # 8.2, Neutrophils # (Auto) , Neutrophils (%) (Auto) , Platelet Count 332, Prothromb Time International Ratio 1.3, Prothrombin Time 14.8H, Red Blood Count 2.99L, Red Cell Distribution Width 13.2, Segmented Neutrophils % 70H, White Blood Count 11.70H MICRO 02/18 Blood culture Negative to date SPEC #: [id number] YAHAIRA: 02/18/17 STATUS: COMP REQ #: [id number] RECD: 02/18/[address]: JENS BAILEY MD Order Location: ED SOURCE: URINE DESCRIPTION: U CATH IND Procedure Result Verified URINE CULTURE Final Verified 02/21/17-725 AM Source: URINE / INDWELLING CATH (DIRECTOR OF SUSTAINABLE DESIGN) Order Location: EMERGENCY Site: U CATH IND Received : 02/19/17 13:48 Order#: [id number] Urine Culture FINAL 02/21/17 07:25 S Klebsiella oxytoca >100,000 cfu/ml K. oxytoca Antibiotic YISEL INT Ampicillin >=32 R Ampicillin/sulbactam 8 S Cefazolin 8 S Ceftriaxone <=1 S Ciprofloxacin <=0.25 S Gentamicin 4 S Nitrofurantoin 32 S Trimethoprim/Sulfa <=20 S S=SUSCEPTIBLE I=INTERMEDIATE R=RESISTANT S-DD= SUSCEPTIBLE, DOSE DEPENDENT IMAGING 02/19/17 Chest Xray Portable 1 View A/P Portable AP chest at 5:10 AM. INDICATION : Pneumonia. The heart size is within normal limits and stable when compared to 02/18/2017. The previous exam noted that the right heart border was indistinct and suggested that there was pneumonia/atelectasis involving the right middle lobe. On this exam the right heart border is better defined. There is only minimal if any residual pneumonia/atelectasis still present. The lungs are otherwise generally clear. There is no sign of failure, and is no pleural effusion identified. The mediastinum is not widened. The osseous structures are intact. IMPRESSION: The appearance of the chest has improved since the prior exam as the right middle lobe does seem better aerated. There is only minimal if any residual pneumonia/atelectasis still present in this area. Clinical followup is recommended. 02/18/17 CHEST 1 VIEW, AP/PA ONLY* INDICATION: Weakness. COMPARISON: 2012. FINDINGS: Single view of the chest demonstrates stable cardiac enlargement without pulmonary edema. There is some infiltrate in the right middle lobe. Left lung is clear. No pneumothorax or effusion seen. IMPRESSION: Probable right middle lobe infiltrate. Follow-up recommended. Discharge Disposition Transitioned to skilled care. Discharge Diet: Carbohydrate controlled Follow up Comment Discharge instructions and medication list will appear in D/C summary from skilled care. Discharge Diagnosis See list above. Problems: Copies to: End of Report . RHIANNON ALEJANDRA MD February 23, 2017 10:16
--- NOTE | 2017-02-26 08:48 | Physical Therapy Evaluation(E) ---
Discharge Summary Service Date/Time 02/26/17, 08:46 Primary Diagnosis: (1) Pneumonia ICD Code: J18.9 (2) Malaise and fatigue (3) Muscle weakness ICD Code: 728.87 Treatment Diagnosis: (1) Malaise and fatigue (2) Muscle weakness ICD Code: 728.87 (3) Pneumonia ICD Code: J18.9 Onset Date: 02/18/2017 Start of Service Date: February 19, 2017 Summary of Progress Summary Comment The patient actively participated in therapy sessions and demonstrated improved standing tolerance. She was discharged from inpatient status and transitioned to swing bed status on 02/23/2017. Distance Walked in Feet 1 step fwd/bwd, 2 side steps Assistive Device: FWW Assist: Min Assist/Contact Guard (Standing two minutes working on maintaining upright posture, sequencing hip extension, knee extension and side stepping. Patient demonstrates no lateral weight shifting. ) Gait Description: Unsteady Patient retropulsive, knee valgus, and difficulty with hip extension and knee extension simultaneously. Gait Limitations: Fatigue Transfer STG and Status Rolling: Minimal Assistance Goal Status at Discharge: Goal Partially Met Sit-Supine: Minimal Assistance Goal Status at Discharge: Goal Partially Met Sitting Edge of Bed: Modified [place] Goal Status at Discharge: Goal Met Supine-Sit: Minimal Assistance Goal Status at Discharge: Goal Met Sit-Stand from bed: Minimal Assistance Goal Status at Discharge: Goal Met Stand-Sit: Minimal Assistance Goal Status at Discharge: Goal Partially Met Ambulation: Minimal Assistance (A minimum of 10 feet using FWW. ) Goal Status at Discharge: Goal Not Met Plan of Care Goals and Status STG: Plan-Treatment Functional: Trans. Safe w/ AD Goal Status at Discharge: Goal Partially Met Discharge Recommendations: TCU/Skilled [facility] Service Recommendations: Continue Service (Susi would benefit from additional therapy services secondary to extensive weakness, impaired funtional mobilty, and inability to ambulate safely. ) GERA ALVARADO PT February 26, 2017 08:48
== END 2017-02-23 09:27 | disposition swing bed (61) | DRG 871 ==
LOC: ED 17:25 → UNDOADMOB 20:12 → OBSVTOIN 20:12 → MED/SURG 20:12 → INTOOBSV 20:12
PROVIDERS: ADMIT Hospitalist; ATTEND Hospitalist
DX: A41.9 Sepsis, unspecified organism (principal); J18.9 Pneumonia, unspecified organism; N39.0 Urinary tract infection, site not specified; D68.32 Hemorrhagic disorder due to extrinsic circulating anticoagulants; I48.91 Unspecified atrial fibrillation; M10.9 Gout, unspecified; R19.7 Diarrhea, unspecified; L89.322 Pressure ulcer of left buttock, stage 2; L89.312 Pressure ulcer of right buttock, stage 2; L89.899 Pressure ulcer of other site, unspecified stage; R19.5 Other fecal abnormalities; E11.9 Type 2 diabetes mellitus without complications; I10 Essential (primary) hypertension; T45.515A Adverse effect of anticoagulants, initial encounter; Z79.01 Long term (current) use of anticoagulants
CPT/HCPCS: 36415; 51701; 71010; 80048; 80053; 80069; 80162; 81003; 81015; 83605; 83880; 84550; 85025; 85610; 85652; 86140; 86850; 86900; 86901; 87040; 87077; 87088; 87186; 94669; 96365; 99283; 99284

== ENCOUNTER → 2017-02-18 | Outpatient (CLI) | payer MEDICARE, OTHER, MEDICAID | LOC: EMS 17:21 | PROVIDERS: ATTEND Emergency Medicine | DX: M10.9 Gout, unspecified (principal); R19.7 Diarrhea, unspecified ==